=== PATIENT | male | born 1945 | race Caucasian/White ===

== ENCOUNTER 2016-06-28 11:08 | Outpatient (CLI) | payer MEDICARE | END 2016-06-28 11:09 | disposition home or self-care (01) | DX: I25.10 Atherosclerotic heart disease of native coronary artery without angina pectoris (principal); I45.10 Unspecified right bundle-branch block ==

== ENCOUNTER 2016-11-07 11:26 | Outpatient (CLI) | payer MEDICARE ==
[2016-11-07 16:24] VITALS: BP 146/90
--- NOTE | 2016-11-09 07:14 | CARDIAC PROCEDURE NOTE ---
DATE OF SERVICE: 11/07/2016 00:00:00 PROCEDURE: Exercise treadmill test, modified Vance. TIME: 5 minutes 5 seconds. FUNCTIONAL AEROBIC IMPAIRMENT: 30. REASON FOR STOPPING TEST: The patient could not keep up with the rate of the treadmill even when rate was reduced. EXAM CHANGES: None. SYMPTOMS: No chest pain. ST SEGMENT RESPONSE: No significant ST segment elevations or depressions. ARRYTHMIAS: The patient is baseline right bundle branch block. No arrythmias detected. METS ACHIEVED: 4.6 early in test. IMPRESSION: No symptoms, no significant EKG changes. CONCLUSION: Low risk ETT. JOB #: [id number] EXT JOB #:[id number]
--- NOTE | 2016-11-11 13:06 | XRAY Report ---
There was no imaging performed for this exam. Procedure notes and results available in the EMR. ERNIE
== END 2016-11-07 11:27 | disposition home or self-care (01) ==
LOC: DI 11:26
PROVIDERS: ATTEND Internal Medicine
DX: I25.10 Atherosclerotic heart disease of native coronary artery without angina pectoris (principal); R06.00 Dyspnea, unspecified
CPT/HCPCS: 93017

== ENCOUNTER 2018-09-01 11:16 | Outpatient (CLI) | payer MEDICARE | END 2018-09-01 11:17 | disposition critical access hospital (66) | LOC: EMS 11:16 | PROVIDERS: ATTEND Surgery | DX: R46.4 Slowness and poor responsiveness (principal); R03.1 Nonspecific low blood-pressure reading; R68.89 Other general symptoms and signs | CPT/HCPCS: A0425; A0427 ==

== ENCOUNTER 2018-09-01 11:51 | Inpatient (IN) | payer MEDICARE ==
--- NOTE | 2018-09-01 12:45 | ED Physician Documentation ---
History of Present Illness - Stated complaint Stated Complaint: HYPOTENSIVE - Chief complaint Chief Complaint: Cardiac - History obtained from History obtained from: Patient, EMS - History of Present Illness Timing: Today (This is a 73-year-old gentleman with history of coronary disease and stroke in 2016 with minimal residual deficits although he admits he has some memory problems. He had an outpatient skin surgery done yesterday and her local anesthetic. Last night he was vomiting and today he feels out of sorts. He was incontinent of bowel and says he cannot urinate this morning. He is never had problems with prostate or urinary incontinence or retention. He was hypotensive and bradycardic prior to arrival. He recently got a refill of his medications which include lisinopril and metoprolol, he does not think he skipped any doses and he is pretty sure he did not take any extra doses.) Review of Systems Unable to obtain: Confused PD PAST MEDICAL HISTORY - Past Medical History Past Medical History: No Cardiovascular: Hypertension, High cholesterol, Coronary artery disease Respiratory: None Neuro: None Endocrine/Autoimmune: None GI: None : None HEENT: None Psych: None Musculoskeletal: None Derm: None - Past Surgical History Past Surgical History: Yes General: Appendectomy Cardiovascular: CABG Derm: Skin cancer surgery - Allergies Allergies/Adverse Reactions: Allergies Allergy/AdvReac Type Severity Reaction Status Date / Time No Known Drug Allergies Allergy Verified 09/01/18 12:00 - Social History Does the pt smoke?: No Smoking Status: Former smoker Does the pt drink ETOH?: No Does the pt have substance abuse?: No - Immunizations Immunizations are current?: No - POLST Patient has POLST: No PD ED PE NORMAL - Vitals Vital signs reviewed: Yes - General General: No acute distress, Other (He is alert and oriented to person and place. He can come up with the fact that it may have 2018 and Monday but there are significant delays to figuring this out. He is a poor historian for short-term events and seems slightly confused.) - HEENT HEENT: PERRL, EOMI - Neck Neck: Supple, no meningeal sign, No bony TTP - Cardiac Cardiac: RRR, No murmur - Respiratory Respiratory: No respiratory distress, Clear bilaterally - Abdomen Abdomen: Soft, Non tender - Male Male : Other (I did a bedside bladder scan it read greater than 350 mL's) - Back Back: No CVA TTP, No spinal TTP - Derm Derm: Normal color, Warm and dry - Extremities Extremities: No edema, No calf tenderness / cord, Other (He lacks radial pulses on both sides due to what looks like prior radial artery harvesting for may be a CABG.) - Neuro 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 Eye Opening: Spontaneous Motor: Obeys Commands Verbal: Confused GCS Score: 14 - Psych Psych: Normal mood, Normal affect Results - Vitals Vitals: Vital Signs - 24 hr 09/01/18 09/01/18 09/01/18 11:53 12:08 12:10 Temperature 36.3 C L Heart Rate 69 72 Respiratory 14 16 Rate Blood Pressure 96/54 L 111/62 Blood Pressure 111/62 [Right] O2 Saturation 94 93 Oxygen O2 Source Room air - EKG (time done) 1158 Rate: Rate (enter#) (70) Rhythm: NSR [place]: Normal Intervals: RBBB Ischemia: Normal ST segments Compare to prior EKG: Old EKG unavailable Computer interpretation: Agree with computer - Labs Labs: Laboratory Tests 09/01/18 09/01/18 09/01/18 12:30 12:30 12:30 Sodium 137 Potassium 5.4 H Chloride 101 Carbon Dioxide 21 Anion Gap 15.0 H BUN 57 H Creatinine 3.0 H Estimated GFR (MDRD) 21 L Glucose 100 Lactic Acid 1.9 Calcium 8.5 Total Bilirubin 0.8 AST 23 ALT 12 Alkaline Phosphatase 78 Troponin I < 0.04 Total Protein 6.5 L Albumin 3.5 Globulin 3.0 Albumin/Globulin Ratio 1.2 Lipase 27 PD MEDICAL DECISION MAKING - ED course ED course: 73-year-old gentleman presents by ambulance for hypotension, reported bradycardia although he is not been bradycardic here. He has a productive cough. He is modestly altered. Turned that his left a few days ago and that may have been the instigating thing. His labs look prerenal. We have no prior labs for him, I asked him if he is ever had any trouble with his kidneys and he says now. Asking when he last had labs done he does not know, nor does he know what lab was used. He also has evidence of right basilar pneumonia. He was cultured up and given Rocephin and Zithromax as well as generous IV fluids. Departure - Departure Disposition: 66 [facility] DC/Xfer Clinical Impression: Delirium ARF (acute renal failure) Qualifiers: Acute renal failure type: unspecified Qualified Code(s): N17.9 - Acute kidney failure, unspecified Pneumonia Qualifiers: Pneumonia type: due to unspecified organism Laterality: right Lung location: lower lobe of lung Qualified Code(s): J18.1 - Lobar pneumonia, unspecified organism Condition: Serious
[2018-09-01 13:03] LABS: ALBUMIN 3.5 g/dL (3.2-5.5); ALBUMIN/GLOBULIN RATIO 1.2 (1.0-2.2); BILIRUBIN,TOTAL 0.8 mg/dL (0.2-1.0); CALCIUM 8.5 mg/dL (8.5-10.3); TOTAL PROTEIN 6.5 g/dL (6.7-8.2)
[2018-09-01] MEDS ORDERED: SODIUM CHLORIDE 0.9% 1,000 ML IV ONE ×2 (13:10→13:27)
--- NOTE | 2018-09-01 13:23 | XRAY Report ---
Reason: cough hypotension Procedure Date: 09/01/2018 Accession Number: [id number] / [id number] Procedure: XR - Chest 1 View X-Ray CPT Code: 34666 FULL RESULT: EXAM: CHEST RADIOGRAPHY EXAM DATE: 09/01/2018 01:03 PM. CLINICAL HISTORY: Cough, hypotension. COMPARISON: None. TECHNIQUE: 1 view. FINDINGS: Lungs/Pleura: Mild right basilar opacification is present. No pneumothorax or pleural effusions. Mediastinum: The heart size is normal. The patient has had a sternotomy and CABG. Other: None. IMPRESSION: Mild right basilar opacification could indicate atelectasis, aspiration, or infection. RADIA
[2018-09-01] MEDS ORDERED: cefTRIAXone 2 GM in SODIUM CHLORIDE 0.9% MINIBAG 100 ML IV STA (13:27)
[2018-09-01] MEDS ORDERED: AZITHROMYCIN INJ 500 MG in SODIUM CHLORIDE 0.9% 250 ML IV STA (13:27)
[2018-09-01 13:52] LABS: BASOPHILS % (AUTO) 0.2 %; EOSINOPHILS # (AUTO) 0.3 10^3/uL (0.0-0.7); HGB - HEMOGLOBIN 12.2 g/dL (14.0-18.0); LYMPHOCYTES # (AUTO) 0.8 10^3/uL (1.5-3.5); LYMPHOCYTES % (AUTO) 5.1 %; MEAN CORPUSCULAR HEMOGLOBIN 31.9 pg (27.0-31.0); MEAN CORPUSCULAR HGB CONC 33.2 g/dL (32.0-36.0); MEAN PLATELET VOLUME 7.1 fL (7.4-11.4); MONOCYTES # (AUTO) 1.2 10^3/uL (0.0-1.0); MONOCYTES % (AUTO) 7.9 %; NEUTROPHILS # (AUTO) 12.7 10^3/uL (1.5-6.6); NEUTROPHILS % (AUTO) 84.8 %; PLT - PLATELET COUNT 188 10^3/uL (130-450); RED BLOOD COUNT 3.83 10^6/uL (4.70-6.10); RED CELL DISTRIBUTION WIDTH 14.5 % (12.0-15.0); WHITE BLOOD COUNT 14.9 x10^3/uL (4.8-10.8)
[2018-09-01] MEDS ORDERED: PROCHLORPERAZINE 10 MG/2 ML VIAL IVP PRN (14:03)
[2018-09-01 14:45] LABS: BILIRUBIN,URINE NEGATIVE (NEGATIVE); GLUCOSE, URINE (UA) NEGATIVE (NEGATIVE); KETONES,URINE (UA) NEGATIVE (NEGATIVE); LEUKOCYTE ESTERASE, URINE NEGATIVE (NEGATIVE); NITRITE,URINE NEGATIVE (NEGATIVE); OCCULT BLOOD,URINE NEGATIVE (NEGATIVE); PH,URINE 5.5 PH (5.0-7.5); PROTEIN,URINE NEGATIVE (NEGATIVE); UROBILINOGEN,URINE 0.2 (NORMAL) E.U./dL (NORMAL)
[2018-09-01 14:46] LABS: CLARITY,URINE CLEAR (CLEAR)
[2018-09-01] MEDS: DEXTROSE 5%-0.9% NACL 1,000 ML IV SCH ×2 (16:24→23:58)
[2018-09-01] MEDS: SODIUM CHLORIDE FLUSH 0.9% 10 ML SYRINGE IVP SCH (17:21)
--- NOTE | 2018-09-01 18:42 | HISTORY & PHYSICAL EXAMINATION ---
DATE OF SERVICE: 09/01/2018 Physician: Sydnie Larson MD HISTORY OF PRESENT ILLNESS: This is a 73-year-old white male with a history of coronary artery disease, possible bypass surgery in the past, history of stroke with mild memory impairment, who presented when he felt weak, called an ambulance who brought him in and he was found to be hypotensive and bradycardic. The ambulance run sheet is not available to me. His initial vital signs in the emergency room; however, showed a blood pressure of 96/54 with a pulse of 69. The patient reported that he had been coughing for several days, thinks he may have had a fever, but did not measure it, had nausea and vomiting yesterday and has had no urination today according to the ER complaint. He states he feels slightly better already, but is still vague with his answers. His has been out of town, has gone to take care of a new grandchild, will be gone until 09/18/2018 and he is living alone. He thinks he has been taking his medications properly, not missing them, but not taking extras. He has never had renal failure before. He is a very poor historian currently. ALLERGIES: NONE. MEDICATIONS 1. Plavix 75 mg daily. 2. Lisinopril 10 mg b.i.d. 3. Metoprolol tartrate 50 mg b.i.d. FAMILY HISTORY: Noncontributory with no inherited diseases. SOCIAL HISTORY: He is a nonsmoker, drinks no alcohol, no illicit drug use history. He lives with his who is currently out of town for about 2 more weeks. REVIEW OF SYSTEMS: A comprehensive review of systems was performed and the pertinent positives are listed above. The rest are negative. PHYSICAL EXAMINATION GENERAL: Elderly white male. He is in no distress except he feels cold and is under many blankets. VITAL SIGNS: Blood pressure 110/65, pulse of 83 in sinus rhythm, afebrile, room air saturation 96%. HEENT: Reveals dry oral mucosa. He has a long arambula. NECK: Without JVD or carotid bruits. CHEST: Clear, but diminished in the right base. No wheezes or rales. HEART: Heart sounds normal. No murmur. ABDOMEN: Soft, nontender. Decreased bowel sounds. A Mane is in place. EXTREMITIES: No clubbing, cyanosis or edema. NEUROLOGIC: Decreased memory, oriented to person and place, but not time. LABORATORY DATA: Sodium 137, potassium 5.4, BUN 57, creatinine 3.0. Lactic acid normal at 1.9. Liver tests normal. Troponin not detectable. Lipase normal. White blood count 14.9 with a left shift, hemoglobin 12.2 with MCV of 96, platelet count normal at 188. No INR was done. Urinalysis unremarkable. CHEST X-RAY: Right lower lobe infiltrate. EKG: Normal sinus rhythm, right bundle branch block, left anterior fascicular block, poor R-wave progression, and it is similar to an EKG from 2016. DIAGNOSES 1. Hypotension. 2. Community-acquired pneumonia. 3. Acute kidney injury. 4. Hyperkalemia. 5. Dehydration. 6. Urinary retention. 7. History of coronary artery disease. 8. History of cerebrovascular accident. 9. Anemia. PLAN: Admit the patient, start telemetry, start aggressive IV hydration. Follow his potassium in 6 hours to assure that he is not becoming more hyperkalemic and then daily BMP as well as CBC. Obtain blood culture (done in the ER) and obtain a sputum culture. Begin treatment for community-acquired pneumonia using empiric IV ceftriaxone and IV Zithromax, also add Mucinex and p.r.n. nebulizers. Obtain an Echo to evaluate LV contractility given the hypotension. Hold his lisinopril and beta shaun doses since he currently still has borderline-low blood pressure, and was hypotensive just several hours ago. Continue with saline hydration. Continue with Mane for drainage because of urinary retention. Continue with Plavix. Determine why he is not on daily aspirin, as well. Obtain a B12, folate, and iron panel to evaluate the anemia. DEEP VENOUS THROMBOSIS PROPHYLAXIS: SCDs. CODE STATUS: FULL CODE. ATTESTATION: The patient is expected to be discharged and transferred to another facility within 96 hours: Yes. TD: 09/01/2018 16:53 ERNIE
[2018-09-01 20:10] LABS: CREATININE 2.5 mg/dL (0.6-1.2)
[2018-09-01] MEDS: FAMOTIDINE 20 MG TABLET PO SCH ×2 (20:17→20:19)
[2018-09-02] MEDS: SODIUM CHLORIDE FLUSH 0.9% 10 ML SYRINGE IVP SCH ×3 (00:01→17:08)
[2018-09-02 05:20] LABS: BASOPHILS % (AUTO) 0.2 %; EOSINOPHILS # (AUTO) 0.3 10^3/uL (0.0-0.7); EOSINOPHILS % (AUTO) 4.3 %; HGB - HEMOGLOBIN 11.3 g/dL (14.0-18.0); LYMPHOCYTES # (AUTO) 0.8 10^3/uL (1.5-3.5); LYMPHOCYTES % (AUTO) 10.2 %; MEAN CORPUSCULAR HEMOGLOBIN 32.6 pg (27.0-31.0); MEAN CORPUSCULAR HGB CONC 33.5 g/dL (32.0-36.0); MEAN CORPUSCULAR VOLUME 97.1 fL (80.0-94.0); MEAN PLATELET VOLUME 7.3 fL (7.4-11.4); MONOCYTES # (AUTO) 0.9 10^3/uL (0.0-1.0); NEUTROPHILS % (AUTO) 74.3 %; PLT - PLATELET COUNT 161 10^3/uL (130-450); RED BLOOD COUNT 3.47 10^6/uL (4.70-6.10); RED CELL DISTRIBUTION WIDTH 14.4 % (12.0-15.0)
[2018-09-02 05:33] LABS: CALCIUM 7.8 mg/dL (8.5-10.3); CREATININE 2.3 mg/dL (0.6-1.2)
[2018-09-02 05:54] LABS: FOLATE 15.37 ng/mL (5.90 - >24.8)
[2018-09-02] MEDS: DEXTROSE 5%-0.9% NACL 1,000 ML IV SCH ×2 (08:55→17:06)
[2018-09-02] MEDS: FAMOTIDINE 20 MG TABLET PO SCH ×2 (08:56→20:24)
[2018-09-02] MEDS: CLOPIDOGREL 75 MG TABLET PO SCH (08:56)
[2018-09-02] MEDS: DOCUSATE SODIUM 250 MG CAPSULE PO SCH (08:57)
[2018-09-02] MEDS: SENNA 8.6 MG TABLET PO SCH (08:57)
[2018-09-02] MEDS ORDERED: POLYETHYLENE GLYCOL 3350 17 GM PACKET PO SCH (09:00)
[2018-09-02] MEDS: FERROUS GLUCONATE 324 MG TABLET PO SCH ×2 (12:55→17:07)
[2018-09-02] MEDS: guaiFENesin 600 MG TABLET PO SCH ×2 (12:55→20:24)
--- NOTE | 2018-09-02 18:47 | PROVIDER PROGRESS NOTE ---
Assessment/Plan - Problem List (1) ARF (acute renal failure) Qualifiers: Acute renal failure type: unspecified Qualified Code(s): N17.9 - Acute kidney failure, unspecified Assessment/Plan: BUN/creat are improving with iv hydration, but still very abnormal. Continue iv and po hydration. Follow BP daily. (2) Pneumonia Qualifiers: Pneumonia type: due to unspecified organism Laterality: right Lung location: lower lobe of lung Qualified Code(s): J18.1 - Lobar pneumonia, unspecified organism Assessment/Plan: Continue antibiotics and pulmonary toilet. (3) History of CVA (cerebrovascular accident) Assessment/Plan: Memory impairment noted. He has not yet been OOB (with PT) to assess for gait or weakness. (4) Anemia Qualifiers: Anemia type: iron deficiency Assessment/Plan: B12 and Folate levels are adequate, Iron stores are very low. Will start oralo iron replacement, and order stool guiac test. (5) Hx of CABG Assessment/Plan: The patient could not remember this part of his Hx to confirm it, when in the ER. Troponins were obtained due to hypotension plus Hx of CAD, and are all normal. Echo is pending. Continue Plavix, and awaiting stool guiac. Also determine why he is not on ASA with Plavix, which is customary. (6) Hypotension Assessment/Plan: Resolved with iv hydration and meds on hold. (7) Hyperkalemia Assessment/Plan: Resolved, with saline hydration and creat normalizing. - Current Meds Current Meds: Current Medications Generic Name Dose Route Start Last Admin Trade Name Lorena PRN Reason Stop Dose Admin Clopidogrel Bisulfate 75 mg 09/02/18 09:00 09/02/18 08:56 Plavix PO 75 mg DAILY RASHAD Administration Docusate Sodium 250 - 500 mg 09/02/18 09:00 09/02/18 08:57 Colace 250mg Capsule PO Not Given DAILY RASHAD Famotidine 20 mg 09/01/18 21:00 09/02/18 08:56 Pepcid PO 20 mg BID RASHAD Administration Ferrous Gluconate 324 mg 09/02/18 09:02 09/02/18 17:07 Fergon PO 324 mg BIDWM RASHAD Administration Guaifenesin 600 mg 09/02/18 12:00 09/02/18 12:55 Mucinex PO 600 mg BID RASHAD Administration Dextrose/Sodium Chloride 1,000 mls @ 125 mls/hr 09/01/18 15:00 09/02/18 17:06 D5ns IV 125 mls/hr .Q8H RASHAD Administration Polyethylene Glycol 17 gm 09/02/18 09:00 09/02/18 08:58 Miralax PO Not Given DAILY RASHAD Senna 8.6 - 17.2 mg 09/02/18 09:00 09/02/18 08:57 Senokot PO Not Given DAILY RASHAD Sodium Chloride 10 ml 09/01/18 17:00 09/02/18 17:08 Normal Saline Flush 0.9% IVP 10 ml 0100,0900,1700 RASHAD Administration - Lab Result Fish Bone Diagrams: 09/05/18 05:25 09/05/18 05:25 - Additional Planning My Orders: My Active Orders 09/01/18 21:00 Famotidine [Pepcid] 20 mg PO BID 09/02/18 09:00 Echo Transthoracic Complete [ECHO] Routine Clopidogrel [Plavix] 75 mg PO DAILY Docusate Sodium 250Mg Capsule [Colace 250Mg Capsule] 250 - 500 mg PO DAILY Polyethylene Glycol 3350 [Miralax] 17 gm PO DAILY Senna [Senokot] 8.6 - 17.2 mg PO DAILY 09/02/18 09:02 Ferrous Gluconate [Fergon] 324 mg PO BIDWM 09/02/18 12:00 guaiFENesin [Mucinex] 600 mg PO BID 09/02/18 17:44 CUL, RESPIRATORY [RM] Urgent 09/03/18 05:00 BMP - BASIC METABOLIC PANEL [CHEM] DAILYLAB CBC - COMP BLD CT W/AUTO DIFF [HEME] DAILYLAB 09/04/18 05:00 BMP - BASIC METABOLIC PANEL [CHEM] DAILYLAB CBC - COMP BLD CT W/AUTO DIFF [HEME] DAILYLAB Subjective - Subjective Patient Reports: Feeling Better, Resting Comfortably Objective Vital Signs: Vital Signs - 24 hr 09/01/18 09/01/18 09/02/18 19:11 23:50 04:45 Temperature 36.8 C 36.7 C 36.8 C Heart Rate [ 73 66 76 Brachial] Respiratory 16 16 16 Rate Blood Pressure 99/50 L 94/60 123/68 [Right Brachial artery] O2 Saturation 92 94 93 09/02/18 09/02/18 07:26 15:51 Temperature 36.8 C 36.6 C Heart Rate [ 68 76 Brachial] Respiratory 16 16 Rate Blood Pressure 94/55 L 139/73 H [Right Brachial artery] O2 Saturation 96 98 Oxygen O2 Source Nasal cannula I&O (Last 24 Hrs): Intake and Output Totals x24h 08/31/18 09/01/18 09/02/18 23:59 23:59 23:59 Intake Total 2584.833 2370 Output Total 950 1600 Balance 1634.833 770 General: Alert HEENT: Mucous membr. moist/pink, Other (Stuttering (his normal speech)) Neck: Supple Neuro: Non Focal Cardiovascular: Regular rate, No murmurs Respiratory: No respiratory distress Extremities: No edema - Results Results: Laboratory Results WBC 8.0 x10^3/uL (4.8-10.8) 09/02/18 04:46 RBC 3.47 10^6/uL (4.70-6.10) L 09/02/18 04:46 Hgb 11.3 g/dL (14.0-18.0) L 09/02/18 04:46 Hct 33.7 % (42.0-52.0) L 09/02/18 04:46 MCV 97.1 fL (80.0-94.0) H 09/02/18 04:46 MCH 32.6 pg (27.0-31.0) H 09/02/18 04:46 MCHC 33.5 g/dL (32.0-36.0) 09/02/18 04:46 RDW 14.4 % (12.0-15.0) 09/02/18 04:46 Plt Count 161 10^3/uL (130-450) 09/02/18 04:46 MPV 7.3 fL (7.4-11.4) L 09/02/18 04:46 Neut # (Auto) 6.0 10^3/uL (1.5-6.6) 09/02/18 04:46 Lymph # (Auto) 0.8 10^3/uL (1.5-3.5) L 09/02/18 04:46 [place] # (Auto) 0.9 10^3/uL (0.0-1.0) 09/02/18 04:46 Eos # (Auto) 0.3 10^3/uL (0.0-0.7) 09/02/18 04:46 Baso # (Auto) 0.0 10^3/uL (0.0-0.1) 09/02/18 04:46 Absolute Nucleated RBC 0.00 x10^3/uL 09/02/18 04:46 Nucleated RBC % 0.1 /100WBC 09/02/18 04:46 Sodium 137 mmol/L (135-145) 09/02/18 04:46 Potassium 4.6 mmol/L (3.5-5.0) 09/02/18 04:46 Chloride 103 mmol/L (101-111) 09/02/18 04:46 Carbon Dioxide 23 mmol/L (21-32) 09/02/18 04:46 Anion Gap 11.0 (6-13) 09/02/18 04:46 BUN 48 mg/dL (6-20) H 09/02/18 04:46 Creatinine 2.3 mg/dL (0.6-1.2) H 09/02/18 04:46 Estimated GFR (MDRD) 28 (>89) L 09/02/18 04:46 Glucose 115 mg/dL (70-100) H 09/02/18 04:46 Lactic Acid 1.9 mmol/L (0.5-2.2) 09/01/18 12:30 Calcium 7.8 mg/dL (8.5-10.3) L 09/02/18 04:46 Iron 24 ug/dL (45-182) L 09/02/18 04:46 TIBC 220 ug/dL (250-450) L 09/02/18 04:46 % Saturation 11 % (20-50) L 09/02/18 04:46 Transferrin 157 mg/dL (180-329) L 09/02/18 04:46 Total Bilirubin 0.8 mg/dL (0.2-1.0) 09/01/18 12:30 AST 23 IU/L (10-42) 09/01/18 12:30 ALT 12 IU/L (10-60) 09/01/18 12:30 Alkaline Phosphatase 78 IU/L (42-121) 09/01/18 12:30 Troponin I < 0.04 ng/mL (<0.49) 09/01/18 19:58 Total Protein 6.5 g/dL (6.7-8.2) L 09/01/18 12:30 Albumin 3.5 g/dL (3.2-5.5) 09/01/18 12:30 Globulin 3.0 g/dL (2.1-4.2) 09/01/18 12:30 Albumin/Globulin Ratio 1.2 (1.0-2.2) 09/01/18 12:30 Lipase 27 U/L (22-51) 09/01/18 12:30 Vitamin B12 181 pg/mL (180-914) 09/02/18 04:46 Folate 15.37 ng/mL (5.90 - >24.8) 09/02/18 04:46 Urine Color YELLOW 09/01/18 14:35 Urine Clarity CLEAR (CLEAR) 09/01/18 14:35 Urine pH 5.5 PH (5.0-7.5) 09/01/18 14:35 Ur Specific [place] 1.025 (1.002-1.030) 09/01/18 14:35 Urine Protein NEGATIVE mg/dL (NEGATIVE) 09/01/18 14:35 Urine Glucose (UA) NEGATIVE mg/dL (NEGATIVE) 09/01/18 14:35 Urine Ketones NEGATIVE mg/dL (NEGATIVE) 09/01/18 14:35 Urine Occult Blood NEGATIVE (NEGATIVE) 09/01/18 14:35 Urine Nitrite NEGATIVE (NEGATIVE) 09/01/18 14:35 Urine Bilirubin NEGATIVE (NEGATIVE) 09/01/18 14:35 Urine Urobilinogen 0.2 (NORMAL) E.U./dL (NORMAL) 09/01/18 14:35 Ur Leukocyte Esterase NEGATIVE (NEGATIVE) 09/01/18 14:35 Ur Microscopic Review NOT INDICATED 09/01/18 14:35 Urine Culture Comments NOT INDICATED 09/01/18 14:35
[2018-09-03] MEDS: DEXTROSE 5%-0.9% NACL 1,000 ML IV SCH ×2 (00:03→07:02)
[2018-09-03] MEDS: SODIUM CHLORIDE FLUSH 0.9% 10 ML SYRINGE IVP SCH ×3 (01:17→16:36)
[2018-09-03 06:23] LABS: BASOPHILS % (AUTO) 0.2 %; EOSINOPHILS # (AUTO) 0.3 10^3/uL (0.0-0.7); EOSINOPHILS % (AUTO) 3.6 %; HGB - HEMOGLOBIN 11.9 g/dL (14.0-18.0); LYMPHOCYTES # (AUTO) 0.8 10^3/uL (1.5-3.5); LYMPHOCYTES % (AUTO) 10.3 %; MEAN CORPUSCULAR HEMOGLOBIN 32.4 pg (27.0-31.0); MEAN CORPUSCULAR HGB CONC 33.1 g/dL (32.0-36.0); MEAN PLATELET VOLUME 7.3 fL (7.4-11.4); MONOCYTES # (AUTO) 0.9 10^3/uL (0.0-1.0); NEUTROPHILS # (AUTO) 5.5 10^3/uL (1.5-6.6); NEUTROPHILS % (AUTO) 73.9 %; PLT - PLATELET COUNT 162 10^3/uL (130-450); RED BLOOD COUNT 3.68 10^6/uL (4.70-6.10); RED CELL DISTRIBUTION WIDTH 14.1 % (12.0-15.0); WHITE BLOOD COUNT 7.4 x10^3/uL (4.8-10.8)
[2018-09-03 06:25] LABS: CALCIUM 7.9 mg/dL (8.5-10.3); CREATININE 1.7 mg/dL (0.6-1.2)
[2018-09-03] MEDS: FERROUS GLUCONATE 324 MG TABLET PO SCH ×2 (08:28→16:36)
[2018-09-03] MEDS: CLOPIDOGREL 75 MG TABLET PO SCH (08:29)
[2018-09-03] MEDS: DOCUSATE SODIUM 250 MG CAPSULE PO SCH (08:29)
[2018-09-03] MEDS: guaiFENesin 600 MG TABLET PO SCH ×2 (08:30→21:15)
[2018-09-03] MEDS: FAMOTIDINE 20 MG TABLET PO SCH ×2 (08:30→21:15)
[2018-09-03] MEDS: SENNA 8.6 MG TABLET PO SCH (08:30)
[2018-09-03] MEDS: PSYLLIUM PACKET PO SCH (13:14)
[2018-09-03] MEDS: TAMSULOSIN 0.4 MG CAPSULE PO SCH (13:24)
[2018-09-03] MEDS: cefUROXime axetil 250 MG TABLET PO SCH ×2 (13:24→21:15)
[2018-09-03] MEDS: OXYMETAZOLINE NASAL SPRAY NAS SCH ×2 (13:25→21:17)
[2018-09-03] MEDS ORDERED: IPRATROPIUM/ALBUTEROL 3 ML NEB INH PRN (13:57)
--- NOTE | 2018-09-03 14:55 | XRAY Report ---
Reason: productive cough, hypoxia Procedure Date: 09/03/2018 Accession Number: [id number] / [id number] Procedure: XR - Chest 1 View X-Ray CPT Code: 97322 FULL RESULT: EXAM: CHEST RADIOGRAPHY EXAM DATE: 09/03/2018 12:53 PM. CLINICAL HISTORY: Productive cough, hypoxia. COMPARISON: CHEST 1 VIEW 09/01/2018 12:48 PM. TECHNIQUE: 1 view. FINDINGS: Lungs/Pleura: Slight interval improvement in nonspecific subsegmental right basilar opacity, favoring atelectasis. No effusion or extra ventilatory air. Mediastinum: Within exam limitations, the cardiomediastinal contour is normal. Other: None. IMPRESSION: Slight interval improvement in nonspecific right basilar opacity favors improved atelectasis. RADIA
[2018-09-03] MEDS: METOPROLOL SUCCINATE 50 MG TABLET PO SCH (16:36)
[2018-09-03] MEDS: ACETAMINOPHEN 325 MG TABLET PO PRN (17:55)
[2018-09-03] MEDS ORDERED: GI COCKTAIL 120 ML BOTTLE PO ONE (18:17)
[2018-09-03] MEDS ORDERED: NITROGLYCERIN SL 0.4 MG TABLET SL PRN (18:18)
[2018-09-03 19:04] LABS: CRP - C-REACTIVE PROTEIN 5.3 mg/dL (0-1.0); HB2 TOTAL 12.5 g/dL; HEMOGLOBIN A1C 0.51 g/dL; HEMOGLOBIN A1C % 5.9 % (4.6-6.2); MAGNESIUM 1.8 mg/dL (1.7-2.8)
[2018-09-03] MEDS: ATORVASTATIN 40 MG TABLET PO SCH (21:15)
[2018-09-03] MEDS: ASPIRIN 325 MG TABLET PO SCH (21:16)
[2018-09-03] MEDS: NITROGLYCERIN 2% PASTE TOP SCH (21:16)
--- NOTE | 2018-09-03 21:52 | PROVIDER PROGRESS NOTE ---
Subjective - Prog Note Date Prog Note Date: 09/03/18 Prog Note Time: 17:00 - Subjective Pt reports feeling: Worse Subjective: Patricio seemed comfortable during his initial exam, but complained of a runny nose, cough, and chest tightness related to his cough. He denied new chest pain, nausea, vomiting, diarrhea, a new rash, insomnia, dizziness, or a change in his sputum. * later this evening nursing reported acute onset chest pain. This event occurred shortly after eating his evening meal, and the patient believed it to be from "heartburn". Chest pain work up underway. Current Medications - Current Medications Current Medications: Active Medications: Acetaminophen (Tylenol) 650 mg PO Q4HR PRN PRN Reason: Pain or Fever > 38C (100.4F) Last Admin: 09/03/18 17:55 Dose: 650 mg Albuterol/Ipratropium (Duoneb) 3 ml INH RTQ4H PRN PRN Reason: SHORTNESS OF AIR/WHEEZING Aspirin (Jessica) 325 mg PO DAILYWM [facility] Last Admin: 09/03/18 21:16 Dose: 325 mg Atorvastatin Calcium (Lipitor) 80 mg PO QPM [facility] Last Admin: 09/03/18 21:15 Dose: 80 mg Cefuroxime Axetil (Ceftin) 250 mg PO BID [facility] Last Admin: 09/03/18 21:15 Dose: 250 mg Clopidogrel Bisulfate (Plavix) 75 mg PO DAILY [facility] Last Admin: 09/03/18 08:29 Dose: 75 mg Docusate Sodium (Colace 250mg Capsule) 250 - 500 mg PO DAILY [facility] Last Admin: 09/03/18 08:29 Dose: 250 mg Famotidine (Pepcid) 20 mg PO BID [facility] Last Admin: 09/03/18 21:15 Dose: 20 mg Ferrous Gluconate (Fergon) 324 mg PO BIDWM [facility] Last Admin: 09/03/18 16:36 Dose: 324 mg Fluticasone Propionate (Flonase) 2 sprays JOE DAILY [facility] Guaifenesin (Mucinex) 600 mg PO BID [facility] Last Admin: 09/03/18 21:15 Dose: 600 mg Levothyroxine Sodium (Synthroid) 125 mcg PO QDAC [facility] Metoprolol Succinate (Toprol Xl) 50 mg PO BIDWM [facility] Last Admin: 09/03/18 16:36 Dose: 50 mg Nitroglycerin (Nitrostat) 0.4 mg SL Q5MIN PRN PRN Reason: Chest Pain Nitroglycerin (Nitro-Bid (Pkt)) 0.5 inch TOP Q6H [facility] Last Admin: 09/03/18 21:16 Dose: 0.5 inch Oxymetazoline HCl (Afrin) 2 sprays JOE BID [facility] Stop: 09/05/18 21:01 Last Admin: 09/03/18 21:17 Dose: 2 sprays Prochlorperazine Edisylate (Compazine Inj) 10 mg IVP Q6HR PRN PRN Reason: Nausea / Vomiting Psyllium Hydrophilic Mucilloid (Metamucil) 1 packet PO DAILY [facility] Last Admin: 09/03/18 13:14 Dose: Not Given Senna (Senokot) 8.6 - 17.2 mg PO DAILY [facility] Last Admin: 09/03/18 08:30 Dose: 8.6 mg Sodium Chloride (Normal Saline Flush 0.9%) 10 ml IVP PRN PRN PRN Reason: NEEDED PER PROVIDER ORDERS Sodium Chloride (Normal Saline Flush 0.9%) 10 ml IVP 0100,0900,1700 [facility] Last Admin: 09/03/18 16:36 Dose: 10 ml Tamsulosin HCl (Flomax) 0.4 mg PO DAILY [facility] Last Admin: 09/03/18 13:24 Dose: 0.4 mg HOME meds: Clopidogrel Bisulfate [Clopidogrel] 75 mg PO DAILY 09/01/18 Lisinopril 10 mg PO BID 09/01/18 Metoprolol Tartrate 50 mg PO BID 09/01/18 Objective - Vital Signs/Intake & Output Reviewed Vital Signs: Yes Vital Signs: Vital Signs x48h Temp Pulse Pulse Pulse Resp BP BP 09/03/18 18:10 36.9 C 99 18 158/87 H 09/03/18 15:45 91 81 165/86 H 09/03/18 15:40 36.7 C 81 18 147/92 H BP Pulse Ox 09/03/18 18:10 93 09/03/18 15:45 168/87 H 09/03/18 15:40 94 Intake & Output: Intake & Output 08/31/18 09/01/18 09/02/18 09/03/18 23:59 23:59 23:59 23:59 Intake Total 2584.833 2870 4375.417 Output Total 950 2250 2125 Balance 1634.092 689 7769.417 - Objective General Appearance: positive: Alert, Moderate distress, Anxious Eyes Bilateral: positive: PERRL Eyes: OU Conjunctivae pale ENT: positive: Pharynx nml, No signs of dehydration Neck: positive: Thyroid nml, No JVD, Trachea midline Respiratory: positive: Chest non-tender, Wheezes, Rhonchi Cardiovascular: positive: No gallop, Irregularly irregular, Systolic murmur, Decreased pulse(s) Peripheral Pulses: 1+ Radial (R), 1+ Radial (L) Abdomen: positive: Non-tender, Nml bowel sounds, Hepatomegaly, Other (rounded, soft) Rectal: positive: Hemorrhoid Back: positive: Nml inspection Skin: positive: No rash, Warm, Dry, Pallor Extremities: positive: Non-tender, Pedal edema, Other (long standing BLE swelling, s/s on PVD, poor sensation) Neurologic/Psychiatric: positive: Oriented x3, CN's nml (2-12), Weakness, Sensory loss, Slurred/abnml speech (studdered speech, becomes worse when nervous Sluggish speech, slow to respond Poor short term memory, poor historian), Depressed mood/affect Reflexes: Bicep (R): 3+, Bicep (L): 3+ - Lab Results Fish Bones: 09/03/18 05:34 09/03/18 05:34 Other Labs: Lab Results x24hrs 09/03/18 09/03/18 09/03/18 Range/Units 18:37 18:37 18:37 WBC (4.8-10.8) x10^3/uL RBC (4.70-6.10) 10^6/uL Hgb (14.0-18.0) g/dL Hct (42.0-52.0) % MCV (80.0-94.0) fL MCH (27.0-31.0) pg MCHC (32.0-36.0) g/dL RDW (12.0-15.0) % Plt Count (130-450) 10^3/uL MPV (7.4-11.4) fL Neut # (Auto) (1.5-6.6) 10^3/uL Lymph # (Auto) (1.5-3.5) 10^3/uL Boyle # (Auto) (0.0-1.0) 10^3/uL Eos # (Auto) (0.0-0.7) 10^3/uL Baso # (Auto) (0.0-0.1) 10^3/uL Absolute Nucleated RBC x10^3/uL Nucleated RBC % /100WBC Sodium (135-145) mmol/L Potassium (3.5-5.0) mmol/L Chloride (101-111) mmol/L Carbon Dioxide (21-32) mmol/L Anion Gap (6-13) BUN (6-20) mg/dL Creatinine (0.6-1.2) mg/dL Estimated GFR (MDRD) (>89) Glucose (70-100) mg/dL Glycated Hemoglobin 5.9 (4.6-6.2) % Estim Average Glucose 123 H (70-100) Calcium (8.5-10.3) mg/dL Magnesium 1.8 (1.7-2.8) mg/dL Troponin I (<0.49) ng/mL C-Reactive Protein 5.3 H (0-1.0) mg/dL TSH 46.27 H (0.34-5.60) uIU/mL 09/03/18 09/03/18 09/03/18 Range/Units 18:37 05:34 05:34 WBC 7.4 (4.8-10.8) x10^3/uL RBC 3.68 L (4.70-6.10) 10^6/uL Hgb 11.9 L (14.0-18.0) g/dL Hct 36.1 L (42.0-52.0) % MCV 98.0 H (80.0-94.0) fL MCH 32.4 H (27.0-31.0) pg MCHC 33.1 (32.0-36.0) g/dL RDW 14.1 (12.0-15.0) % Plt Count 162 (130-450) 10^3/uL MPV 7.3 L (7.4-11.4) fL Neut # (Auto) 5.5 (1.5-6.6) 10^3/uL Lymph # (Auto) 0.8 L (1.5-3.5) 10^3/uL Boyle # (Auto) 0.9 (0.0-1.0) 10^3/uL Eos # (Auto) 0.3 (0.0-0.7) 10^3/uL Baso # (Auto) 0.0 (0.0-0.1) 10^3/uL Absolute Nucleated RBC 0.01 x10^3/uL Nucleated RBC % 0.1 /100WBC Sodium 137 (135-145) mmol/L Potassium 4.4 (3.5-5.0) mmol/L Chloride 108 (101-111) mmol/L Carbon Dioxide 23 (21-32) mmol/L Anion Gap 6.0 (6-13) BUN 27 H (6-20) mg/dL Creatinine 1.7 H (0.6-1.2) mg/dL Estimated GFR (MDRD) 40 L (>89) Glucose 111 H (70-100) mg/dL Glycated Hemoglobin (4.6-6.2) % Estim Average Glucose (70-100) Calcium 7.9 L (8.5-10.3) mg/dL Magnesium (1.7-2.8) mg/dL Troponin I 0.08 (<0.49) ng/mL C-Reactive Protein (0-1.0) mg/dL TSH (0.34-5.60) uIU/mL ABX Reporting Has patient been on IV antibiotics over the past 48 hours?: No Assessment/Plan - Problem List (1) Pneumonia Impression: - Imaging in the ED showed a right opacity - Repeat imaging today showed a similar finding - WBC count was elevated at 14.9, now 7.4 - Reports of fever, chills and at least a week of a productive cough Plan: Start Ceftin PO today, continue incentive spirometer, wean oxygen as tolerated Qualifiers: Pneumonia type: due to unspecified organism Laterality: right Lung location: lower lobe of lung Qualified Code(s): J18.1 - Lobar pneumonia, unspecified organism (2) COPD exacerbation Impression: - No home oxygen use per patient - No daily maintenance inhalers at home - Chronic post nasal drip - Admits to at least 60 years of cigarette use 1-2 PPD - No reports of recent pneumonia - Initial impression at the time of admission was acute pneumonia given his reports of a fever, increased cough and based on imaging showing a right low lobe opacity - Started nasal sprays for complaints of sinusitis Plan: Continue oxygen, avoid steroids since elevated troponins, and anticipate sending home inhalers to the pharmacy upon discharge (3) S/P CABG x 5 Impression: - Evidence of this as BUEs have harvesting sights, BLEs as well - Long standing vascular complications such as BPH, CVA, and PVD - Continues on Plavix, BB and CHAPARRITA - Metoprolol changed to succinate today - No interruption in the use of Plavix while inpatient - Now adding full dose ASA, and high dose statin this evening since having acute chest pain Plan: Continue medications, continue chest pain work up (4) Chest pain Impression: - New onset of chest pain just after finishing dinner reported by nursing - Back in bed for his exam - Describes the pain as sharp, that also causes a pressure sensation to his mid- sternum - He initially states that if feels similar to heart burn - He also thought it could be real chest pain, as he remembers this from long ago - Associated symptoms are anxiety, mild shortness of breath, and the pain does travel up into his left shoulder - EKG was reviewed by Dr. Amaro and myself- similar to previous - First troponin is elevated at 0.08, next check is at 0030 and 0630 - Started ASA, atorvastatin 80 mg PO daily, NTG paste 0.5 inches Q6H scheduled - Monitor on telemetry - Repeat EKG if chest pain is recurrent - Give a one time dose of GI cocktail - Other labs; A1C normal, TSH grossly elevated at 46.27, CRP up at 5.3, magnesium 1.8 Plan: Continue on tele, continue with serial troponins, seek Cardiology consult if troponin continues to go up (5) ARF (acute renal failure) Impression: - Initial creatinine was very high at 3.0, and today after getting generous IVFs, it has come down nicely to 1.7 - Likely in the setting of acute illness, dehydration for an extended period of time Plan: Initiate diuretics, stop IVFs, remove valdez, routine labs Qualifiers: Acute renal failure type: unspecified Qualified Code(s): N17.9 - Acute kidney failure, unspecified (6) History of CVA (cerebrovascular accident) Impression: - CVA in 2016, with residuals of memory loss and initially with swallowing difficulties - Continues to have memory loss/dementia - Questionable his functional abilities at home Plan: Continue to monitor (7) Dementia Impression: - Poor short term memory - A likely residual from his CVA in 2016 - Is functional enough to eat, and seems to focus during conversations - PT recommends to return home when ready Plan: Continue to monitor for confusion (8) Elevated TSH Impression: - TSH checked since the patient was having acute chest pain - Lab results show a very elevated level of 46 - Patient denies a history of this and there is no synthroid on his home med list Plan: Check free T3, T4 in the AM
[2018-09-03] MEDS: LEVOTHYROXINE 125 MCG TABLET PO SCH (23:35)
[2018-09-04] MEDS: SODIUM CHLORIDE FLUSH 0.9% 10 ML SYRINGE IVP SCH ×4 (03:27→23:45)
[2018-09-04] MEDS: NITROGLYCERIN 2% PASTE TOP SCH ×4 (03:42→21:30)
[2018-09-04] MEDS: LEVOTHYROXINE 125 MCG TABLET PO SCH (06:08)
[2018-09-04 06:38] LABS: BASOPHILS % (AUTO) 0.3 %; EOSINOPHILS # (AUTO) 0.4 10^3/uL (0.0-0.7); HGB - HEMOGLOBIN 11.7 g/dL (14.0-18.0); LYMPHOCYTES # (AUTO) 0.7 10^3/uL (1.5-3.5); LYMPHOCYTES % (AUTO) 8.2 %; MEAN CORPUSCULAR HEMOGLOBIN 32.8 pg (27.0-31.0); MEAN CORPUSCULAR HGB CONC 34.1 g/dL (32.0-36.0); MEAN CORPUSCULAR VOLUME 96.1 fL (80.0-94.0); NEUTROPHILS # (AUTO) 6.8 10^3/uL (1.5-6.6); NEUTROPHILS % (AUTO) 76.5 %; PLT - PLATELET COUNT 163 10^3/uL (130-450); RED BLOOD COUNT 3.57 10^6/uL (4.70-6.10); WHITE BLOOD COUNT 8.9 x10^3/uL (4.8-10.8)
[2018-09-04 06:45] LABS: CREATININE 1.6 mg/dL (0.6-1.2)
[2018-09-04] MEDS: SENNA 8.6 MG TABLET PO SCH (09:44)
[2018-09-04] MEDS: CLOPIDOGREL 75 MG TABLET PO SCH (09:44)
[2018-09-04] MEDS: PSYLLIUM PACKET PO SCH (09:44)
[2018-09-04] MEDS: METOPROLOL SUCCINATE 50 MG TABLET PO SCH ×2 (09:44→16:13)
[2018-09-04] MEDS: FERROUS GLUCONATE 324 MG TABLET PO SCH ×2 (09:44→16:13)
[2018-09-04] MEDS: cefUROXime axetil 250 MG TABLET PO SCH ×2 (09:45→20:27)
[2018-09-04] MEDS: TAMSULOSIN 0.4 MG CAPSULE PO SCH (09:45)
[2018-09-04] MEDS: FAMOTIDINE 20 MG TABLET PO SCH ×2 (09:45→20:28)
[2018-09-04] MEDS: guaiFENesin 600 MG TABLET PO SCH ×2 (09:45→20:28)
[2018-09-04] MEDS: ASPIRIN 325 MG TABLET PO SCH (09:45)
[2018-09-04] MEDS: DOCUSATE SODIUM 250 MG CAPSULE PO SCH (09:45)
[2018-09-04] MEDS: OXYMETAZOLINE NASAL SPRAY NAS SCH ×2 (09:47→20:28)
[2018-09-04] MEDS: ACETAMINOPHEN 325 MG TABLET PO PRN (10:06)
[2018-09-04] MEDS: FLUTICASONE NASAL SPRAY NAS SCH (10:06)
[2018-09-04] MEDS: ATORVASTATIN 40 MG TABLET PO SCH (20:27)
[2018-09-05] MEDS: NITROGLYCERIN 2% PASTE TOP SCH ×2 (02:43→08:36)
[2018-09-05 05:38] LABS: BASOPHILS % (AUTO) 0.4 %; EOSINOPHILS # (AUTO) 0.4 10^3/uL (0.0-0.7); EOSINOPHILS % (AUTO) 4.8 %; HGB - HEMOGLOBIN 11.7 g/dL (14.0-18.0); LYMPHOCYTES # (AUTO) 0.8 10^3/uL (1.5-3.5); LYMPHOCYTES % (AUTO) 9.2 %; MEAN CORPUSCULAR HEMOGLOBIN 32.1 pg (27.0-31.0); MEAN CORPUSCULAR HGB CONC 33.2 g/dL (32.0-36.0); MEAN CORPUSCULAR VOLUME 96.7 fL (80.0-94.0); MEAN PLATELET VOLUME 7.3 fL (7.4-11.4); MONOCYTES % (AUTO) 11.4 %; NEUTROPHILS # (AUTO) 6.8 10^3/uL (1.5-6.6); NEUTROPHILS % (AUTO) 74.2 %; PLT - PLATELET COUNT 177 10^3/uL (130-450); RED BLOOD COUNT 3.66 10^6/uL (4.70-6.10); RED CELL DISTRIBUTION WIDTH 14.1 % (12.0-15.0); WHITE BLOOD COUNT 9.1 x10^3/uL (4.8-10.8)
[2018-09-05 05:54] LABS: ALBUMIN 2.9 g/dL (3.2-5.5); ALKALINE PHOSPHATASE 64 IU/L (42-121); ALT ALANINE AMINOTRANSFERASE 16 IU/L (10-60); AST ASPARTATE AMINOTRANSFERASE 23 IU/L (10-42); BILIRUBIN,TOTAL 0.5 mg/dL (0.2-1.0); BUN - BLOOD UREA NITROGEN 20 mg/dL (6-20); CALCIUM 8.2 mg/dL (8.5-10.3); CARBON DIOXIDE - CO2 25 mmol/L (21-32); CHLORIDE 105 mmol/L (101-111); CHOL/HDL RATIO 3.8 (<5.0); CHOLESTEROL 124 mg/dL; CREATININE 1.5 mg/dL (0.6-1.2); GFR - MDRD 46 (>89); GLUCOSE 109 mg/dL (70-100); HDL CHOLESTEROL 33 mg/dL; LDL CHOLESTEROL,CALCULATED 63 mg/dL; LDL/HDL RATIO 1.9 (<3.6); MAGNESIUM 1.8 mg/dL (1.7-2.8); SODIUM 140 mmol/L (135-145); TOTAL PROTEIN 5.7 g/dL (6.7-8.2); VLDL CHOLESTEROL 28 mg/dL
[2018-09-05] MEDS: LEVOTHYROXINE 125 MCG TABLET PO SCH (06:11)
[2018-09-05] MEDS: ASPIRIN 325 MG TABLET PO SCH (08:36)
[2018-09-05] MEDS: METOPROLOL SUCCINATE 50 MG TABLET PO SCH ×2 (08:36→17:33)
[2018-09-05] MEDS: FERROUS GLUCONATE 324 MG TABLET PO SCH ×2 (08:36→17:32)
[2018-09-05] MEDS: ACETAMINOPHEN 325 MG TABLET PO PRN (08:36)
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
[2018-09-05] MEDS: ISOSORBIDE MONONITRATE ER 30 MG TABLET PO SCH (10:44)
[2018-09-05] MEDS: DOCUSATE SODIUM 250 MG CAPSULE PO SCH (10:45)
[2018-09-05] MEDS: SENNA 8.6 MG TABLET PO SCH (10:45)
[2018-09-05] MEDS: TAMSULOSIN 0.4 MG CAPSULE PO SCH (10:46)
[2018-09-05] MEDS: guaiFENesin 600 MG TABLET PO SCH (10:46)
[2018-09-05] MEDS: CLOPIDOGREL 75 MG TABLET PO SCH (10:46)
[2018-09-05] MEDS: FAMOTIDINE 20 MG TABLET PO SCH ×2 (10:46→21:43)
[2018-09-05] MEDS: cefUROXime axetil 250 MG TABLET PO SCH ×2 (10:47→21:43)
[2018-09-05] MEDS: OXYMETAZOLINE NASAL SPRAY NAS SCH ×2 (10:48→21:43)
[2018-09-05] MEDS: FLUTICASONE NASAL SPRAY NAS SCH (10:48)
[2018-09-05] MEDS ORDERED: FUROSEMIDE 20 MG TABLET PO SCH (11:00)
--- NOTE | 2018-09-05 11:50 | PROVIDER PROGRESS NOTE ---
Subjective - Prog Note Date Prog Note Date: 09/05/18 Prog Note Time: 11:46 - Subjective Pt reports feeling: Improved Subjective: Patricio has several questions today about his heart attack and his COPD management. He denies any further episodes of chest pain since a few nights ago. He notes that his nasal drip has gotten better since starting the nasal sprays. He is happy to get the proper work up today to check for pulmonary emboli as per Cardiology recommendation. Current Medications - Current Medications Current Medications: Active Medications: Acetaminophen (Tylenol) 650 mg PO Q4HR PRN Albuterol/Ipratropium (Duoneb) 3 ml INH RTQ4H PRN Aspirin (Jessica) 81 mg PO DAILYWM RASHAD Atorvastatin Calcium (Lipitor) 80 mg PO QPM RASHAD Cefuroxime Axetil (Ceftin) 250 mg PO BID RASHAD Clopidogrel Bisulfate (Plavix) 75 mg PO DAILY [facility] Docusate Sodium (Colace 250mg Capsule) 250 - 500 mg PO DAILY [facility] Famotidine (Pepcid) 20 mg PO BID [facility] Ferrous Gluconate (Fergon) 324 mg PO BIDWM [facility] Fluticasone Propionate (Flonase) 2 sprays JOE DAILY [facility] Furosemide (Lasix) 20 mg PO DAILY [facility] Guaifenesin (Mucinex) 600 mg PO BID PRN Isosorbide Mononitrate (Imdur) 30 mg PO DAILY [facility] Levothyroxine Sodium (Synthroid) 125 mcg PO QDAC [facility] Magnesium Oxide (Mag Ox) 800 mg PO DAILYWM [facility] Metoprolol Succinate (Toprol Xl) 50 mg PO BIDWM [facility] Nitroglycerin (Nitrostat) 0.4 mg SL Q5MIN PRN Oxymetazoline HCl (Afrin) 2 sprays JOE BID [facility] Prochlorperazine Edisylate (Compazine Inj) 10 mg IVP Q6HR PRN Psyllium Hydrophilic Mucilloid (Metamucil) 1 packet PO DAILY [facility] Senna (Senokot) 8.6 - 17.2 mg PO DAILY RASHAD Tamsulosin HCl (Flomax) 0.4 mg PO DAILY [facility] HOME meds: Clopidogrel Bisulfate [Clopidogrel] 75 mg PO DAILY 09/01/18 Lisinopril 10 mg PO BID 09/01/18 Metoprolol Tartrate 50 mg PO BID 09/01/18 Objective - Vital Signs/Intake & Output Reviewed Vital Signs: Yes Vital Signs: Vital Signs x48h Temp Pulse Pulse Resp BP Pulse Ox 09/05/18 09:45 70 16 09/05/18 08:00 37.2 C 67 16 121/66 96 09/05/18 05:20 37.2 C 67 16 117/63 97 Intake & Output: Intake & Output 09/02/18 09/03/18 09/04/18 09/05/18 23:59 23:59 23:59 23:59 Intake Total 2870 4375.417 710 550 Output Total 2250 2125 1155 750 Balance 620 2250.417 -445 -200 - Objective General Appearance: positive: No acute distress, Alert Eyes Bilateral: positive: PERRL Eyes: OU Conjunctivae pale, OU Scleral icterus (chronic) ENT: positive: Pharynx nml, No signs of dehydration Neck: positive: Thyroid nml, No JVD, Trachea midline Respiratory: positive: Chest non-tender, No respiratory distress, Other (scattered crackles) Cardiovascular: positive: No gallop, Irregularly irregular, Systolic murmur, Decreased pulse(s) Peripheral Pulses: 1+ Radial (R), 1+ Radial (L) Abdomen: positive: Non-tender, Nml bowel sounds, Hepatomegaly, Other (rounded, soft) Back: positive: Nml inspection Skin: positive: No rash, Warm, Dry, Pallor Extremities: positive: Non-tender, Full ROM, Pedal edema (mild BLE- chronic, dependent), Joint swelling, Other (redness to BLEs just past mid-calle extending to toes. Chronic from vascular disease) Neurologic/Psychiatric: positive: Oriented x3, CN's nml (2-12), Weakness, Sensory loss, Slurred/abnml speech, Depressed mood/affect, Other (moderate dementia is apparent, very poor memory) Reflexes: Bicep (R): 2+, Bicep (L): 2+ - Lab Results Fish Bones: 09/05/18 05:25 09/05/18 05:25 Other Labs: Lab Results x24hrs 09/05/18 09/05/18 09/05/18 Range/Units 05:25 05:25 05:25 WBC 9.1 (4.8-10.8) x10^3/uL RBC 3.66 L (4.70-6.10) 10^6/uL Hgb 11.7 L (14.0-18.0) g/dL Hct 35.4 L (42.0-52.0) % MCV 96.7 H (80.0-94.0) fL MCH 32.1 H (27.0-31.0) pg MCHC 33.2 (32.0-36.0) g/dL RDW 14.1 (12.0-15.0) % Plt Count 177 (130-450) 10^3/uL MPV 7.3 L (7.4-11.4) fL Neut # (Auto) 6.8 H (1.5-6.6) 10^3/uL Lymph # (Auto) 0.8 L (1.5-3.5) 10^3/uL Comal # (Auto) 1.0 (0.0-1.0) 10^3/uL Eos # (Auto) 0.4 (0.0-0.7) 10^3/uL Baso # (Auto) 0.0 (0.0-0.1) 10^3/uL Absolute Nucleated RBC 0.00 x10^3/uL Nucleated RBC % 0.0 /100WBC Sodium (135-145) mmol/L Potassium (3.5-5.0) mmol/L Chloride (101-111) mmol/L Carbon Dioxide (21-32) mmol/L Anion Gap (6-13) BUN (6-20) mg/dL Creatinine (0.6-1.2) mg/dL Estimated GFR (MDRD) (>89) Glucose (70-100) mg/dL Calcium (8.5-10.3) mg/dL Magnesium (1.7-2.8) mg/dL Total Bilirubin (0.2-1.0) mg/dL AST (10-42) IU/L ALT (10-60) IU/L Alkaline Phosphatase (42-121) IU/L Troponin I 0.23 (<0.49) ng/mL B-Natriuretic Peptide 408 H (5-100) pg/mL Total Protein (6.7-8.2) g/dL Albumin (3.2-5.5) g/dL Globulin (2.1-4.2) g/dL Albumin/Globulin Ratio (1.0-2.2) Triglycerides ( - 149) mg/dL Cholesterol ( - 199) mg/dL LDL Cholesterol, Calc ( - 129) mg/dL VLDL Cholesterol mg/dL HDL Cholesterol (60 - ) mg/dL LDL/HDL Ratio (<3.6) Cholesterol/HDL Ratio (<5.0) 09/05/18 09/04/18 09/04/18 Range/Units 05:25 18:19 13:11 WBC (4.8-10.8) x10^3/uL RBC (4.70-6.10) 10^6/uL Hgb (14.0-18.0) g/dL Hct (42.0-52.0) % MCV (80.0-94.0) fL MCH (27.0-31.0) pg MCHC (32.0-36.0) g/dL RDW (12.0-15.0) % Plt Count (130-450) 10^3/uL MPV (7.4-11.4) fL Neut # (Auto) (1.5-6.6) 10^3/uL Lymph # (Auto) (1.5-3.5) 10^3/uL Comal # (Auto) (0.0-1.0) 10^3/uL Eos # (Auto) (0.0-0.7) 10^3/uL Baso # (Auto) (0.0-0.1) 10^3/uL Absolute Nucleated RBC x10^3/uL Nucleated RBC % /100WBC Sodium 140 (135-145) mmol/L Potassium 4.2 (3.5-5.0) mmol/L Chloride 105 (101-111) mmol/L Carbon Dioxide 25 (21-32) mmol/L Anion Gap 10.0 (6-13) BUN 20 (6-20) mg/dL Creatinine 1.5 H (0.6-1.2) mg/dL Estimated GFR (MDRD) 46 L (>89) Glucose 109 H (70-100) mg/dL Calcium 8.2 L (8.5-10.3) mg/dL Magnesium 1.8 (1.7-2.8) mg/dL Total Bilirubin 0.5 (0.2-1.0) mg/dL AST 23 (10-42) IU/L ALT 16 (10-60) IU/L Alkaline Phosphatase 64 (42-121) IU/L Troponin I 0.34 0.41 (<0.49) ng/mL B-Natriuretic Peptide (5-100) pg/mL Total Protein 5.7 L (6.7-8.2) g/dL Albumin 2.9 L (3.2-5.5) g/dL Globulin 2.8 (2.1-4.2) g/dL Albumin/Globulin Ratio 1.0 (1.0-2.2) Triglycerides 141 ( - 149) mg/dL Cholesterol 124 ( - 199) mg/dL LDL Cholesterol, Calc 63 ( - 129) mg/dL VLDL Cholesterol 28 mg/dL HDL Cholesterol 33 L (60 - ) mg/dL LDL/HDL Ratio 1.9 (<3.6) Cholesterol/HDL Ratio 3.8 (<5.0) ABX Reporting Has patient been on IV antibiotics over the past 48 hours?: No Assessment/Plan - Problem List (1) NSTEMI (non-ST elevated myocardial infarction) Impression: - Troponins have been trending down, reached a peak of 0.57 - Chest pain free, and remains on nitroglycerin patches Q6H - Continue Imdur - EKG unchanged, echo limited similar to previous on 09/01/2018 with no wall motion abnormalities, same EF of 65% - Medical management with ASA, plavix, atorvastatin, BB, CHAPARRITA, nitrates and diuretics - Spoke with Dr. Nagy with [facility], Cardiology who agrees with this medical management, but suggests evaluation for PE Plan: Continue to monitor, continue medical management, Order a VQ scan (2) Pneumonia Impression: - Imaging in the ED showed a right opacity - Repeat imaging showed a similar finding - WBC count was elevated at 14.9, now 8.9 - Reports of fever, chills and at least a week of a productive cough at home - S/p Azithromycin while in the ED Plan: Continue Ceftin PO, continue incentive spirometer, wean oxygen as tolerated Qualifiers: Pneumonia type: due to unspecified organism Laterality: right Lung location: lower lobe of lung Qualified Code(s): J18.1 - Lobar pneumonia, unspecified organism (3) COPD exacerbation Impression: - No home oxygen use per patient - No daily maintenance inhalers at home - Chronic post nasal drip - Admits to at least 60 years of cigarette use 1-2 PPD - No reports of recent pneumonia - Initial impression at the time of admission was acute pneumonia given his reports of a fever, increased cough and based on imaging showing a right low lobe opacity - Continue nasal sprays for complaints of sinusitis, nasal dripping - Preliminary oxygen walking desaturation study shows a need for home oxygen per respiratory therapy Plan: Continue oxygen, avoid steroids since elevated troponins, and anticipate sending home inhalers to the pharmacy upon discharge, oxygen walking test prior to discharge to be performed by RT (4) S/P CABG x 5 Impression: - Evidence of this as BUEs have harvesting sights, BLEs as well - Long standing vascular complications such as BPH, CVA, and PVD - Continues on Plavix, BB, ASA, statin, and CHAPARRITA - Metoprolol changed to succinate - No interruption in the use of Plavix while inpatient Plan: Continue medications, continue chest pain work up (5) Chest pain Impression: - New onset of chest pain just after finishing dinner reported by nursing - Described the pain as sharp, that also caused a pressure sensation to his mid- sternum - He initially states that if feels similar to heart burn - He also thought it could be real chest pain, as he remembers this from long ago - Associated symptoms are anxiety, mild shortness of breath, and the pain does travel up into his left shoulder - EKG was reviewed by Dr. Amaro and myself- similar to previous - Troponin peaked at 0.57 - Continue with ASA, atorvastatin 80 mg PO daily, oral IMDUR, BB - Monitor on telemetry - Repeat EKG if chest pain is recurrent - Status post a one time dose of GI cocktail - Other labs; A1C normal, TSH grossly elevated at 46.27, CRP up at 5.3, magnesium 1.8 - Replaced magnesium - Consulted Roberto Calle, Cardiology who agrees with medical management, ok to decrease ASA to 81 mg Plan: Continue on tele, continue with AM troponins, (6) ARF (acute renal failure) Impression: - Initial creatinine was very high at 3.0, and after getting generous IVFs, it has come down nicely to 1.5 - Likely in the setting of acute illness, dehydration for an extended period of time Plan: Continue diuretics, routine labs Qualifiers: Acute renal failure type: unspecified Qualified Code(s): N17.9 - Acute kidney failure, unspecified (7) History of CVA (cerebrovascular accident) Impression: - CVA in 2016, with residuals of memory loss and initially with swallowing difficulties - Continues to have memory loss/dementia - Question his functional abilities at home - Remains on Plavix Plan: Continue to monitor (8) Dementia Impression: - Poor short term memory - A likely residual from his CVA in 2016 - Is functional enough to eat, and seems to focus during conversations - PT recommends to return home when ready Plan: Continue to monitor for confusion Qualifiers: Dementia type: Alzheimer's disease (9) Hypothyroidism Impression: - TSH checked since the patient was having acute chest pain - Lab results show a very elevated level of 46 - Patient denies a history of this and there is no synthroid on his home med list - Free T3, T4 both low indicating true hypothyroidism Plan: continue synthroid, re-check TSH in 4-6 weeks
[2018-09-05] MEDS ORDERED: guaiFENesin 600 MG TABLET PO PRN (14:00)
[2018-09-05] MEDS: PSYLLIUM PACKET PO SCH (14:03)
[2018-09-05] MEDS: SODIUM CHLORIDE FLUSH 0.9% 10 ML SYRINGE IVP SCH ×2 (14:03→17:32)
[2018-09-05] MEDS: MAGNESIUM OXIDE 400 MG TABLET PO SCH (14:03)
--- NOTE | 2018-09-05 16:17 | XRAY Report ---
Reason: hypoxia, cough Procedure Date: 09/05/2018 Accession Number: [id number] / [id number] Procedure: XR - Chest 2 View X-Ray CPT Code: 15099 FULL RESULT: EXAM: CHEST RADIOGRAPHY EXAM DATE: 09/05/2018 03:58 PM. CLINICAL HISTORY: Hypoxia, cough. COMPARISON: CHEST 1 VIEW 09/03/2018 12:53 PM. TECHNIQUE: 2 views. FINDINGS: Lungs/Pleura: Hyperexpanded with flattened diaphragm and coarse lung markings typical for COPD. No definite localized infiltrate, consolidation, effusion, or pneumothorax. Mediastinum: Heart and mediastinal contours are unremarkable. Upper lobe vessels not distended. Other: Status post median sternotomy, degenerative changes. IMPRESSION: Chronic findings. No acute disease. RADIA
--- NOTE | 2018-09-05 16:35 | Nuclear Medicine Report ---
Reason: evaluate for pulmonary emboli Procedure Date: 09/05/2018 Accession Number: [id number] / [id number] Procedure: NM - Lung Vent/Perf V/Q CPT Code: FULL RESULT: EXAM: VENTILATION/PERFUSION SCAN (V/Q SCAN) EXAM DATE: 09/05/2018 04:01 PM. CLINICAL HISTORY: Evaluate for pulmonary emboli. Hypoxia, cough COMPARISON: CHEST 1 VIEW 09/03/2018 12:53 PM CHEST 2 VIEW 09/05/2018 3:58 PM. TECHNIQUE: Patient was administered 44 mCi of technetium 99m DTPA aerosol by inhalation and 8 standard ventilation images of the lungs were obtained. Next, the patient was injected with 5.2 mCi of technetium 99m MAA intravenously and 8 standard perfusion images of the lungs were obtained. FINDINGS: Perfusion images demonstrate heterogeneous perfusion to the lungs bilaterally with scattered small to moderate perfusion deficits. Ventilatory images demonstrate overall worse but otherwise corresponding radiotracer distribution without convincing mismatch. There is moderate central airway deposition consistent with obstructive pulmonary physiology. Comparison chest radiograph demonstrates no significant focal pulmonary opacity. IMPRESSION: 1. No ventilation/perfusion mismatches to indicate pulmonary emboli. Low probability for acute pulmonary embolism. 2. Moderate central airway deposition consistent with obstructive pulmonary physiology. RADIA
--- NOTE | 2018-09-05 20:15 | Ultrasound Report ---
Reason: foot pain, evaluate for DVT Procedure Date: 09/05/2018 Accession Number: [id number] / [id number] Procedure: US - Duplex Ext Veins Bilateral CPT Code: FULL RESULT: EXAM: BILATERAL LOWER EXTREMITY VENOUS ULTRASOUND EXAM DATE: 09/05/2018 06:24 PM. CLINICAL HISTORY: Foot pain and swelling. COMPARISON: None. TECHNIQUE: Real-time sonographic vascular imaging was performed by the hearing aid repairer through the lower extremities utilizing both color-flow and Doppler spectral analysis. Multiple event marketing representative static images were saved for review. FINDINGS: Right: Common Femoral Vein (CFV): Normal. CFV-GSV Junction: Normal. Profunda Femoral Vein (PFV): Normal. Femoral Vein (FV) Prox: Normal. Femoral Vein (FV) Mid: Normal. Femoral Vein (FV) Dist: Normal. Popliteal Vein: Normal. Posterior Tibial Veins: Normal. Peroneal Veins: Normal. Left: Common Femoral Vein (CFV): Normal. CFV-GSV Junction: Normal. Profunda Femoral Vein (PFV): Normal. Femoral Vein (FV) Prox: Normal. Femoral Vein (FV) Mid: Normal. Femoral Vein (FV) Dist: Normal. Popliteal Vein: Normal. Posterior Tibial Veins: Normal. Peroneal Veins: Normal. Other: None. IMPRESSION: No evidence for deep venous thrombosis bilaterally. RADIA
[2018-09-05] MEDS: ATORVASTATIN 40 MG TABLET PO SCH (21:43)
[2018-09-06] MEDS: SODIUM CHLORIDE FLUSH 0.9% 10 ML SYRINGE IVP PRN ×2 (01:03→10:23)
[2018-09-06] MEDS: SODIUM CHLORIDE FLUSH 0.9% 10 ML SYRINGE IVP SCH ×2 (01:03→10:23)
[2018-09-06] MEDS: ACETAMINOPHEN 325 MG TABLET PO PRN ×2 (02:24→11:33)
[2018-09-06 06:02] LABS: BASOPHILS % (AUTO) 0.4 %; EOSINOPHILS # (AUTO) 0.5 10^3/uL (0.0-0.7); HGB - HEMOGLOBIN 10.5 g/dL (14.0-18.0); LYMPHOCYTES % (AUTO) 10.1 %; MEAN CORPUSCULAR HEMOGLOBIN 32.3 pg (27.0-31.0); MEAN CORPUSCULAR HGB CONC 33.5 g/dL (32.0-36.0); MEAN CORPUSCULAR VOLUME 96.2 fL (80.0-94.0); MEAN PLATELET VOLUME 7.2 fL (7.4-11.4); MONOCYTES # (AUTO) 1.1 10^3/uL (0.0-1.0); MONOCYTES % (AUTO) 11.1 %; NEUTROPHILS # (AUTO) 7.3 10^3/uL (1.5-6.6); NEUTROPHILS % (AUTO) 73.4 %; PLT - PLATELET COUNT 183 10^3/uL (130-450); RED BLOOD COUNT 3.26 10^6/uL (4.70-6.10); WHITE BLOOD COUNT 9.9 x10^3/uL (4.8-10.8)
[2018-09-06 06:15] LABS: ALBUMIN/GLOBULIN RATIO 1.2 (1.0-2.2); BILIRUBIN,TOTAL 0.5 mg/dL (0.2-1.0); CALCIUM 8.3 mg/dL (8.5-10.3); CREATININE 1.6 mg/dL (0.6-1.2); MAGNESIUM 1.8 mg/dL (1.7-2.8); TOTAL PROTEIN 5.5 g/dL (6.7-8.2)
[2018-09-06] MEDS: MAGNESIUM OXIDE 400 MG TABLET PO SCH (07:33)
[2018-09-06] MEDS: LEVOTHYROXINE 125 MCG TABLET PO SCH (07:33)
[2018-09-06] MEDS: FERROUS GLUCONATE 324 MG TABLET PO SCH (07:34)
[2018-09-06] MEDS ORDERED: METOPROLOL SUCCINATE 25 MG TABLET PO SCH (08:00)
[2018-09-06] MEDS ORDERED: ASPIRIN CHEW 81 MG TABLET PO SCH (09:00)
[2018-09-06] MEDS: CLOPIDOGREL 75 MG TABLET PO SCH (10:18)
[2018-09-06] MEDS: ISOSORBIDE MONONITRATE ER 30 MG TABLET PO SCH (10:19)
[2018-09-06] MEDS: cefUROXime axetil 250 MG TABLET PO SCH ×2 (10:20→15:00)
[2018-09-06] MEDS: FAMOTIDINE 20 MG TABLET PO SCH (10:20)
[2018-09-06] MEDS: TAMSULOSIN 0.4 MG CAPSULE PO SCH (10:21)
[2018-09-06] MEDS: SENNA 8.6 MG TABLET PO SCH (10:23)
[2018-09-06] MEDS: DOCUSATE SODIUM 250 MG CAPSULE PO SCH (10:23)
[2018-09-06] MEDS: PSYLLIUM PACKET PO SCH (10:23)
[2018-09-06] MEDS: FLUTICASONE NASAL SPRAY NAS SCH (10:24)
[2018-09-06] MEDS ORDERED: NYSTATIN CREAM 15 GM TUBE TOP SCH (11:00)
[2018-09-06] MEDS ORDERED: HYDROCORTISONE 1% CREAM 28 GM TUBE TOP SCH (11:00)
[2018-09-06 11:01] VITALS: BP 104/72
--- NOTE | 2018-09-06 11:06 | Discharge Plan ---
Discharge Plan Disposition: Home, Self Care Condition: Serious Prescriptions: Nitroglycerin [Nitrostat] 0.4 mg SL Q5MIN PRN #30 tablet PRN Reason: Chest Pain Albuterol Sulfate [Proventil Hfa Inhaler] 1 - 2 puffs INH Q4H PRN #1 inhaler PRN Reason: Shortness Of Air/Wheezing Aspirin Chewable [[place] Michael Aspirin] 81 mg PO DAILY #30 tablet Atorvastatin Calcium [Lipitor] 80 mg PO DAILY #30 tablet cefUROXime axetil [Ceftin] 250 mg PO BID #8 tablet Fluticasone/Salmeterol [Advair 250-50 Diskus] 1 each IH BID #1 blst.w.dev Hydrocortisone 1% Oint [Hydrocortisone] 1 gm TP BID PRN #1 oint...g. PRN Reason: rash Isosorbide Mononitrate ER [Imdur] 30 mg PO DAILY #30 tablet Levothyroxine [Synthroid] 125 mcg PO QDAC #30 tablet Magnesium Oxide 400 mg PO DAILY #30 tablet Metoprolol Succinate [Toprol Xl] 25 mg PO BIDWM #30 tablet Nystatin Cream [Mycostatin Cream] 1 applic TOP BID PRN #1 tube PRN Reason: rash Tamsulosin [Flomax] 0.4 mg PO DAILY #30 tab Tiotropium [place] [Spiriva] 5 puffs IH DAILY #30 cap.w.dev Diet: Cardiac Activity Restrictions: Activity as Tolerated Shower Restrictions: No (fall precaution) Instruction Topics: Levothyroxine tablets, Thyroid Stimulating Hormone, ED Hypothyroidism, Pneumonia, Cefuroxime tablets, Metoprolol tablets, Heart Attack Sx, Aspirin ASA chewable tablets, Atorvastatin tablets, Rash Skin Self Care, Nystatin skin cream or ointment, Hydrocortisone skin cream ointment lotion or solution Additional Instructions or Follow Up instructions: you may followup your PCP in one week. you was found to NSTEM heart attack in hospital. You are prescribed medications Metoprolol, Imdur, Nitro PRN, Aspirin, and Lipitor. Please followup appointment manager as out-pt. You are prescribed antibiotic to finish the treatment course for your pneumonia. You were found to have hypothyroidism, you are prescribed levothyroxine, please followup your PCP check TSH again. Should your symptoms return or worsen, you may present ER, call 911 or call your PCP for help. Follow-Up Care: Outpatient Rehab - PT No Smoking: If you smoke, Please STOP! Call for help. Follow-up with: Kathie Mcgee MD [Provider Admit Priv/Credential] -
--- NOTE | 2018-09-06 11:49 | DISCHARGE SUMMARY ---
Discharge Summary Discharge Date: 09/06/18 Discharging Provider: [facility] Primary Care Provider: Dr. Kathie Holley Condition at Discharge: Serious Discharge Disposition: 01 Home, Self Care Discharge Facility Name: home - DIAGNOSES Admission Diagnoses: 1, hypotension 2, PNA 3, acute kidney injury 4, hyperkalemia 5, dehydration 6, urinary retention 7, hx of CAD 8, hx of CVA 9, anemia Discharge Diagnoses with Status of Each Condition: (1) NSTEMI (non-ST elevated myocardial infarction) (2) Pneumonia (3) COPD exacerbation (4) S/P CABG x 5 (5) Chest pain (6) ARF (acute renal failure) (7) History of CVA (cerebrovascular accident) (8) Dementia (9) Hypothyroidism - HPI History of Present Illness: pt is 73 yrs old male with significant cardiac hx of CAD, CABG, CVA, who present to complain of weakness, hypotension, bradycardia, cough, reported fever at home, and report he had nausea and vomiting. pt was found to have pneumonia and acute kidney injury. - HOSPITAL COURSE Hospital Course: 1) NSTEMI (non-ST elevated myocardial infarction) pt has no more chest pain, he report he feel far much better, and he request to be d/c today. his troponin is step by step down. ECHO reveals normal EF,and no regional wall mobility abnormality. pt is prescribed Aspirin, Lipitor, metoprolol, continue Plavix, Imdur, Nitro PRN. advise pt Followup global consumer sector vice president (2) Pneumonia pt has 94% sat on room air. O2 desat study reveals pt does not need home O2. pt has no fever, chill, cough. WBC is normal. pt is prescribed antibiotics to finish the treatment course. (3) COPD exacerbation pt report he smoke cigarette for more than 60 yrs. pt is prescribed inhaler. pt has 94% sat on room air. O2 desat study reveals pt does not need home O2. advise pt has pulmonary rehab (4) S/P CABG x 5 stable (5) Chest pain resoled, no more chest pain (6) ARF (acute renal failure) improved, and stable (7) History of CVA (cerebrovascular accident) stable, continue Plavix and aspirin (8) Dementia stable pt decline to have nurse home replacement and further social sciences department chair help. advise pt do not drive his car now, until his come back. he state his bought enough food and other items for him. (9) Hypothyroidism new finding, order Levothyroxine, advise pt followup PCP to check TSH again (10) skin rash at groin area pt is prescribed nystatin TOP and hydrocortisone TOP PRN - ALLERGIES Allergies/Adverse Reactions: Allergies Allergy/AdvReac Type Severity Reaction Status Date / Time No Known Drug Allergies Allergy Verified 09/01/18 12:00 - MEDICATIONS Home Medications: Ambulatory Orders Medication Instructions Recorded Confirmed Clopidogrel Bisulfate [Clopidogrel] 75 mg PO DAILY 09/01/18 09/01/18 Albuterol Sulfate [Proventil Hfa 1 - 2 puffs INH Q4H PRN #1 inhaler 09/05/18 Inhaler] Aspirin Chewable [[facility] Michael 81 mg PO DAILY #30 tablet 09/05/18 Aspirin] Atorvastatin Calcium [Lipitor] 80 mg PO DAILY #30 tablet 09/05/18 Fluticasone/Salmeterol [Advair 1 each IH BID #1 blst.w.dev 09/05/18 250-50 Diskus] Isosorbide Mononitrate ER [Imdur] 30 mg PO DAILY #30 tablet 09/05/18 Levothyroxine [Synthroid] 125 mcg PO QDAC #30 tablet 09/05/18 Magnesium Oxide 400 mg PO DAILY #30 tablet 09/05/18 Tamsulosin [Flomax] 0.4 mg PO DAILY #30 tab 09/05/18 Tiotropium [place] [Spiriva] 5 puffs IH DAILY #30 cap.w.dev 09/05/18 Hydrocortisone 1% Oint 1 gm TP BID PRN #1 oint...g. 09/06/18 [Hydrocortisone] Metoprolol Succinate [Toprol Xl] 25 mg PO BIDWM #30 tablet 09/06/18 Nitroglycerin [Nitrostat] 0.4 mg SL Q5MIN PRN #30 tablet 09/06/18 Nystatin Cream [Mycostatin Cream] 1 applic TOP BID PRN #1 tube 09/06/18 cefUROXime axetil [Ceftin] 250 mg PO BID #8 tablet 09/06/18 - PHYSICAL EXAM AT DISCHARGE General Appearance: positive: No acute distress, Alert. negative: Lethargic Eyes Bilateral: positive: Normal inspection, PERRL, No lid inflammation, Conjunctivae nml ENT: positive: ENT inspection nml, Pharynx nml, No signs of dehydration. negative: Purulent nasal drainage, Pharyngeal erythema, Oral lesions Neck: positive: Nml inspection, Thyroid nml, No JVD, Trachea midline. negative: Thyromegaly, Lymphadenopathy (R), Lymphadenopathy (L), Stiff neck, Swelling/bruising, Tracheal deviation Respiratory: positive: Chest non-tender, No respiratory distress, Breath sounds nml. negative: Wheezes, Rales, Rhonchi Cardiovascular: positive: Regular rate & rhythm, No murmur, No gallop. negative: Irregularly irregular, Extrasystoles, Tachycardia, Bradycardia, JVD present, Systolic murmur, Diastolic murmur Peripheral Pulses: positive: 2+ Abdomen: positive: Non-tender, No organomegaly, Nml bowel sounds, No distention. negative: Tenderness, Guarding, Rebound Back: positive: Nml inspection. negative: CVA tenderness (R), CVA tenderness (L) Skin: positive: Color nml, No rash, Warm, Dry, Skin rash. negative: Cyanosis, Diaphoresis, Pallor Extremities: positive: Non-tender, Full ROM, Nml appearance. negative: Calf tenderness, Joint swelling, Mable's sign/cords Neurologic/Psychiatric: positive: Oriented x3, Sensation nml, Mood/affect nml. negative: Weakness, Sensory loss, Facial droop, Slurred/abnml speech, Depressed mood/affect - LABS Result Diagrams: 09/06/18 05:30 09/06/18 05:30 - FOLLOW UP Follow Up: you may followup your PCP in one week. you was found to NSTEM heart attack in hospital. You are prescribed medications Metoprolol, Imdur, Nitro PRN, Aspirin, and Lipitor. Please followup global consumer sector vice president as out-pt. You are prescribed antibi otic to finish the treatment course for your pneumonia. You were found to have hypothyroidism, you are prescribed levothyroxine, please followup your PCP check TSH again. Should your symptoms return or worsen, you may present ER, call 911 or call your PCP for help. - TIME SPENT Time Spent in Discharge (Minutes): 55
== END 2018-09-06 15:32 | disposition home or self-care (01) | DRG 193 ==
LOC: EDUNIT# → ED 11:51 → MS2 14:03
PROVIDERS: ADMIT Internal Medicine; ATTEND Nurse Practitioner Gerontology
DX: R41.0 Disorientation, unspecified (principal); J18.1 Lobar pneumonia, unspecified organism; I21.3 ST elevation (STEMI) myocardial infarction of unspecified site; I10 Essential (primary) hypertension; E78.00 Pure hypercholesterolemia, unspecified; J44.0 Chronic obstructive pulmonary disease with (acute) lower respiratory infection; N17.9 Acute kidney failure, unspecified; Z85.828 Personal history of other malignant neoplasm of skin; I45.2 Bifascicular block; J44.1 Chronic obstructive pulmonary disease with (acute) exacerbation; E03.9 Hypothyroidism, unspecified; I95.9 Hypotension, unspecified; I69.911 Memory deficit following unspecified cerebrovascular disease; G30.9 Alzheimer's disease, unspecified; F02.80 Dementia in other diseases classified elsewhere, unspecified severity, without behavioral disturbance, psychotic disturbance, mood disturbance, and anxiety; E87.5 Hyperkalemia; E86.0 Dehydration; I25.10 Atherosclerotic heart disease of native coronary artery without angina pectoris; R33.9 Retention of urine, unspecified; J32.9 Chronic sinusitis, unspecified; D64.9 Anemia, unspecified; R47.81 Slurred speech; R21 Rash and other nonspecific skin eruption; Z79.02 Long term (current) use of antithrombotics/antiplatelets; Z95.1 Presence of aortocoronary bypass graft; Z87.891 Personal history of nicotine dependence
CPT/HCPCS: 36415; 51702; 71045; 71046; 78582; 80048; 80053; 80061; 81003; 82607; 82746; 83036; 83540; 83605; 83690; 83735; 83880; 84439; 84443; 84466; 84481; 84484; 85025; 86140; 87040; 87205; 93005; 93306; 93308; 93970; 94761; 97110; 97116; 97161; 97165; 99284; A9270; 81001; 83721; 85610; 87070; 87086

== ENCOUNTER 2021-03-22 14:32 | Outpatient (CLI) | payer OTHER ==
--- NOTE | 2021-03-22 17:32 | CT Report ---
PROCEDURE: Low Dose Lung Cancer Screen INDICATIONS: Smoker TECHNIQUE: Noncontrast low-dose images were acquired from the pulmonary apices to the posterior costophrenic ang les. Multiplanar MIP reformats were then acquired. For radiation dose reduction, the following was used: automated exposure control, adjustment of mA and/or kV according to patient size. COMPARISON: None. FINDINGS: Thyroid: Not well visualized. Vasculature: Normal size and contour. Calcified atheromatous change of the aorta. Heart: No cardiomegaly or pericardial effusion. Coronary artery calcification. Mediastinum/juliana: No pathologically enlarged lymph nodes by size criteria. Small hiatal hernia. Lung/pleura: No consolidation, pleural effusion, or pneumothorax. Moderate to advanced centrilobular and paraseptal emphysematous changes. Reticulonodular densities with calcifications are seen in the right lower lobe and lingula, likely re flecting a post infectious or inflammatory process. A partially calcified nodule is seen in the left upper lobe, measuring up to 11 mm (series 10, image 33). Noncalcified pulmonary nodule in the lingula (series 4, image 222; series 10, image 26), measuring 5. 1 x 4.1 mm. Tracheobronchial tree: Patent. Lower lobe bronchiectasis. Upper abdomen: No acute abnormality. A 4.2 x 5.1 cm hypoattenuating lesion arises from the right kidn ey, favored to represent a cyst. Bones: No significant abnormality. Multifocal degenerative change. Sternotomy wires are well aligned. Chest wall: No significant abnormality. IMPRESSION: 1.Benign-appearing pulmonary nodules in the left upper lobe as detailed above. Lung RADS: 2; 12 month follow-up. Reviewed by: Alberto Shaw MD on 03/22/2021 5:31 PM PST Approved by: Alberto Shaw MD on 03/22/2021 5:31 PM PST Station ID: [id number]
== END 2021-03-22 14:33 | disposition home or self-care (01) ==
LOC: DI 14:32
PROVIDERS: ATTEND Family Medicine
DX: Z12.2 Encounter for screening for malignant neoplasm of respiratory organs (principal); R91.8 Other nonspecific abnormal finding of lung field; F17.200 Nicotine dependence, unspecified, uncomplicated

== ENCOUNTER 2022-01-07 11:20 | Outpatient (CLI) | payer OTHER ==
[2022-01-07 11:48] LABS: CREATININE 1.5 mg/dL (0.6-1.2)
== END 2022-01-07 11:21 | disposition home or self-care (01) ==
LOC: LAB 11:20
PROVIDERS: ATTEND Family Medicine
DX: R63.4 Abnormal weight loss (principal)
CPT/HCPCS: 36415; 82565

== ENCOUNTER 2022-03-02 09:41 | Outpatient (CLI) | payer OTHER ==
[~2022-03-02 09:41] MED LIST: lidocaine 1% 20 ML MDV ONE
[2022-03-02] MEDS ORDERED: lidocaine 1% 20 ML MDV SUBQ ONE (11:18)
--- NOTE | 2022-03-08 09:07 | Ultrasound Report ---
ULTRASOUND GUIDED BIOPSY LEFT BREAST: 03/02/2022 CLINICAL: Left axilla mass. PATIENT CONSENT: Risks (minor bleeding, infection, vasovagal reaction and repeat procedure), benefits and alternatives were explained to the patient and written informed consent was obtained. No prior exams were available for correlation. An ultrasound guided biopsy using real-time ultrasound was performed for the solid mass located in th e left axillary tail. This was described on the previous ultrasound report. The skin was prepped in the usual manner. Local anesthetic was administered to the access site. A small incision was made in the breast. The abnormality was approached from the caudocranial aspect. A 12 gauge biopsy needl e was placed adjacent to the abnormality under ultrasound guidance. Once the needle was documented t o be in the correct location, three specimens were obtained using a BARD biopsy device. A skin adhes scar was applied to the access site. The specimens were sent to the laboratory for pathological kristen sis. IMPRESSION: ULTRASOUND GUIDED BIOPSY MALIGNANT Ultrasound guided biopsy of the solid mass in the left axillary tail was successful with no apparent post procedure complications. 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 Pathology results are concordant with imaging findings. A surgical/oncologic consultation is recommended. This exam was interpreted at Station ID: [id number]. Jr Ramirez M.D. ,aty/:03/07/2022 20:15:49 BI-RADS CATEGORY: () - Unspecified - other recall n/a LATERALITY: (B)
== END 2022-03-02 09:42 | disposition home or self-care (01) ==
LOC: DI 09:41
PROVIDERS: ATTEND Family Medicine
DX: C77.3 Secondary and unspecified malignant neoplasm of axilla and upper limb lymph nodes (principal); C80.1 Malignant (primary) neoplasm, unspecified
CPT/HCPCS: 19083

== ENCOUNTER 2022-07-13 15:10 | Emergency (ER) | payer OTHER ==
[2022-07-13 15:44] LABS: BASOPHILS # (AUTO) 0.1 10^3/uL (0.0-0.1); BASOPHILS % (AUTO) 0.7 %; EOSINOPHILS # (AUTO) 0.4 10^3/uL (0.0-0.7); EOSINOPHILS % (AUTO) 4.9 %; HCT - HEMATOCRIT 37.7 % (42.0-52.0); HGB - HEMOGLOBIN 11.8 g/dL (14.0-18.0); LYMPHOCYTES # (AUTO) 0.8 10^3/uL (1.5-3.5); LYMPHOCYTES % (AUTO) 9.2 %; MEAN CORPUSCULAR HEMOGLOBIN 31.8 pg (27.0-31.0); MEAN CORPUSCULAR HGB CONC 31.3 g/dL (32.0-36.0); MEAN CORPUSCULAR VOLUME 101.6 fL (80.0-94.0); MEAN PLATELET VOLUME 8.6 fL (7.4-11.4); MONOCYTES # (AUTO) 0.5 10^3/uL (0.0-1.0); MONOCYTES % (AUTO) 6.2 %; NEUTROPHILS # (AUTO) 6.4 10^3/uL (1.5-6.6); NEUTROPHILS % (AUTO) 78.6 %; PLT - PLATELET COUNT 189 10^3/uL (130-450); RED BLOOD COUNT 3.71 10^6/uL (4.70-6.10); RED CELL DISTRIBUTION WIDTH 14.1 % (12.0-15.0); WHITE BLOOD COUNT 8.1 x10^3/uL (4.8-10.8)
[2022-07-13 15:58] LABS: ALBUMIN 3.1 g/dL (3.2-5.5); ALBUMIN/GLOBULIN RATIO 0.9 (1.0-2.2); BILIRUBIN,TOTAL 0.4 mg/dL (0.2-1.0); CALCIUM 8.3 mg/dL (8.5-10.3); CREATININE 1.3 mg/dL (0.6-1.2); POTASSIUM 4.1 mmol/L (3.5-5.0); TOTAL PROTEIN 6.7 g/dL (6.7-8.2)
--- NOTE | 2022-07-13 16:37 | XRAY Report ---
PROCEDURE: Chest 1 View X-Ray INDICATIONS: Chest pain TECHNIQUE: One view of the chest was acquired. COMPARISON: CT chest with, 01/07/2022. Chest x-ray, 09/05/2018. FINDINGS: Surgical changes and devices: Sternotomy and CABG. Lungs and pleura: Lungs are hyperinflated and lucent compatible with emphysema. There are scars and a telectasis in left mid lung zone and both lower lung zones. No pleural effusions or pneumothorax. Arleen ngs are clear. Mediastinum: Mediastinal contours appear normal. Heart size is normal. Bones and chest wall: No suspicious bony lesions. Overlying soft tissues appear unremarkable. IMPRESSION: 1. Emphysema. 2. Pulmonary scars and atelectasis in left midlung zone and both lower lung zonez. 3. Sternotomy and CABG. Reviewed by: Yolanda Roblero MD on 07/13/2022 4:36 PM PDT Approved by: Yolanda Roblero MD on 07/13/2022 4:36 PM PDT Station ID: [id number]
--- NOTE | 2022-07-13 17:54 | ED Physician Documentation ---
History of Present Illness - Stated complaint Stated Complaint: CHEST PX - Chief complaint Chief Complaint: Cardiac - History obtained from History obtained from: Patient - History of Present Illness Pain level max: 1 Pain level now: 0 - Additonal information Additional information: 77-year-old male with a history of squamous cell carcinoma presents to the emergency department after he was having his Keytruda infusion today and states he had some very mild chest discomfort. Rates it as a 1 out of 10. He states he no longer has any pain. It only lasted for a couple of minutes. Nonradiating. Nothing made it better or worse. No abdominal pain. No nausea or vomiting. No difficulty breathing. He states that he had a cardiac bypass approximately 20 years ago and states he has not had any issues with his heart since that time. Review of Systems Constitutional: denies: Fever, Chills Throat: denies: Sore throat Cardiac: denies: Palpitations Respiratory: denies: Dyspnea, Cough, Wheezing GI: denies: Vomiting, Diarrhea Skin: denies: Rash PD PAST MEDICAL HISTORY - Past Medical History Past Medical History: Yes Cardiovascular: Hypertension, High cholesterol, Coronary artery disease Respiratory: None Neuro: CVA Endocrine/Autoimmune: None GI: None : None HEENT: None Psych: None Musculoskeletal: None Derm: None Other Past Medical History: skin CA - Past Surgical History Past Surgical History: Yes General: Appendectomy Cardiovascular: CABG Derm: Skin cancer surgery - Present Medications Home Medications: Ambulatory Orders Medication Instructions Recorded Confirmed Clopidogrel Bisulfate [Clopidogrel] 75 mg PO DAILY 09/01/18 06/24/22 traMADol [Ultram] 50 mg PO TID PRN 06/03/22 06/24/22 Atorvastatin [Lipitor] 80 mg PO QPM 06/20/22 06/24/22 Levothyroxine [Synthroid] 125 mcg PO QDAC 06/20/22 06/24/22 Senna [Senokot] 8.6 mg PO DAILY 06/20/22 06/24/22 Tamsulosin [Flomax] 0.4 mg PO DAILY PM 06/20/22 06/24/22 - Allergies Allergies/Adverse Reactions: Allergies Allergy/AdvReac Type Severity Reaction Status Date / Time No Known Drug Allergies Allergy Verified 09/01/18 12:00 - Social History Does the pt smoke?: No Smoking Status: Never smoker Does the pt drink ETOH?: No Does the pt have substance abuse?: No - Immunizations Immunizations are current?: No - POLST Patient has POLST: No PD ED PE NORMAL - Vitals Vital signs reviewed: Yes - General General: Alert and oriented X 3, No acute distress - HEENT HEENT: PERRL, Moist mucous membranes - Neck Neck: Supple, no meningeal sign - Cardiac Cardiac: RRR, Strong equal pulses - Respiratory Respiratory: No respiratory distress, Clear bilaterally - Abdomen Abdomen: Soft, Non tender, Non distended - Derm Derm: Warm and dry - Extremities Extremities: No calf tenderness / cord - Neuro Neuro: Alert and oriented X 3 - Psych Psych: Normal mood, Normal affect Results - Vitals Vitals: Vital Signs - 24 hr 07/13/22 07/13/22 07/13/22 15:20 17:41 18:00 Temperature 97.1 C H Heart Rate 84 74 80 Respiratory 17 15 21 Rate Blood Pressure 105/61 120/64 139/77 H O2 Saturation 97 98 99 Oxygen O2 Source Room air - EKG (time done) 1524 EKG releavant findings:: EKG personally interpreted by author of this note. Relevant findings are: Rate: Rate (enter#) (89) Rhythm: NSR Intervals: RBBB Compare to prior EKG: Unchanged from prior EKG - Labs Labs: Laboratory Tests 07/13/22 07/13/22 07/13/22 15:35 15:35 15:35 WBC 8.1 RBC 3.71 L Hgb 11.8 L Hct 37.7 L MCV 101.6 H MCH 31.8 H MCHC 31.3 L RDW 14.1 Plt Count 189 MPV 8.6 Neut # (Auto) 6.4 Lymph # (Auto) 0.8 L Mcmullen # (Auto) 0.5 Eos # (Auto) 0.4 Baso # (Auto) 0.1 Absolute Nucleated RBC 0.00 Nucleated RBC % 0.0 Sodium 136 Potassium 4.1 Chloride 103 Carbon Dioxide 27 Anion Gap 6.0 BUN 27 H Creatinine 1.3 H Estimated GFR (MDRD) 54 L Glucose 142 H Calcium 8.3 L Total Bilirubin 0.4 AST 27 ALT 25 Alkaline Phosphatase 143 H Troponin I High Sens 10.2 Total Protein 6.7 Albumin 3.1 L Globulin 3.6 Albumin/Globulin Ratio 0.9 L Lipase 50 07/13/22 17:58 WBC RBC Hgb Hct MCV MCH MCHC RDW Plt Count MPV Neut # (Auto) Lymph # (Auto) Mcmullen # (Auto) Eos # (Auto) Baso # (Auto) Absolute Nucleated RBC Nucleated RBC % Sodium Potassium Chloride Carbon Dioxide Anion Gap BUN Creatinine Estimated GFR (MDRD) Glucose Calcium Total Bilirubin AST ALT Alkaline Phosphatase Troponin I High Sens 13.2 Total Protein Albumin Globulin Albumin/Globulin Ratio Lipase - Rads (name of study) Chest x-ray Relevant Findings:: Final report received, See rad report PD Medical Decision Making - ED course Complexity details: reviewed results, re-evaluated patient, considered differential, d/w patient ED course: 77-year-old male with atypical chest pain during a Keytruda infusion. CBC shows a mild anemia which is chronic per patient. His chemistries show mildly elevated creatinine. Negative high-sensitivity troponin x2. Patient continues to be asymptomatic in the emergency department. The chest pain resolved up on cessation of the Keytruda infusion. Unclear if this may be a side effect from the infusion. Does not appear to be consistent with acute coronary syndrome at this time. No evidence of PE, pneumothorax, aortic dissection. Patient counseled regarding signs and symptoms for which I believe and urgent re- evaluation would be necessary. Patient with good understanding of and agreement to plan and is comfortable going home at this time This document was made in part using voice recognition software. While efforts are made to proofread this document, sound alike and grammatical errors may occur. Patient took ASA this am Departure - Departure Disposition: 01 Home, Self Care Clinical Impression: Chest pain Qualifiers: Chest pain type: unspecified Qualified Code(s): R07.9 - Chest pain, unspecified Condition: Good Instructions: ED Chest Pain Atypical Unkn Cause Follow-Up: Your,doctor in 2 to 3 days [Other] Comments: Please follow-up with your doctor for further care. Please return if you worsen. Your EKG and heart test did not show any acute abnormalities today. Please contact your doctor for follow-up within the next 2 to 3 days. Discharge Date/Time: 07/13/22 18:45
[2022-07-13 18:52] VITALS: BP 139/77
== END 2022-07-13 18:45 | disposition home or self-care (01) ==
LOC: ED 15:10
DX: R07.9 Chest pain, unspecified (principal)
CPT/HCPCS: 36415; 80053; 83690; 84484; 85025; 93005; 99283; 99284

== ENCOUNTER 2022-07-20 11:21 | Emergency (ER) | payer OTHER | END 2022-07-20 12:00 | disposition home or self-care (01) | LOC: ED 11:21 | DX: Z53.21 Procedure and treatment not carried out due to patient leaving prior to being seen by health care provider (principal) ==

== ENCOUNTER 2022-07-27 10:20 | Emergency (ER) | payer OTHER | END 2022-07-27 10:31 | disposition home or self-care (01) | LOC: ED 10:20 | DX: Z53.21 Procedure and treatment not carried out due to patient leaving prior to being seen by health care provider (principal) ==

== ENCOUNTER 2022-09-08 08:00 | Outpatient (CLI) | payer OTHER ==
[2022-09-08 16:11] LABS: ALBUMIN 3.5 g/dL (3.2-5.5); BILIRUBIN,TOTAL 0.7 mg/dL (0.2-1.0); CALCIUM 8.8 mg/dL (8.5-10.3); CREATININE 1.3 mg/dL (0.6-1.2); POTASSIUM 4.8 mmol/L (3.5-5.0)
== END 2022-09-08 23:59 | disposition home or self-care (01) ==
LOC: LAB.R 08:00
PROVIDERS: ATTEND Nurse Practitioner Adult Health
DX: R63.4 Abnormal weight loss (principal)
CPT/HCPCS: 80053